=== PATIENT | female | born 1990 | race African-American/Black ===

== ENCOUNTER 2016-11-25 10:31 | Emergency (ER) | payer OTHER ==
[~2016-11-25] VITALS: Ht 170.2 cm; Wt 84.4 kg
[~2016-11-25 10:31] MED LIST: TRAZ100T12 PO
[2016-11-25 10:40] VITALS: BP 151/96
[2016-11-25 11:42] LABS: BILIRUBIN,URINE NEGATIVE (NEG); GLUCOSE,URINE NEGATIVE (NEG); NITRITE,URINE NEGATIVE (NEG); PH,URINE 6.5; PROTEIN,URINE NEGATIVE (NEG-TRACE); UROBILINOGEN,URINE 0.2 mg/dL (0.2 mg/dL)
--- NOTE | 2016-11-25 11:43 | PHYS DOC ---
Past Medical History Past Medical History: Hypertension Additional Past Medical Histor: PE Past Surgical History: No Surgical History Alcohol Use: Occasionally Drug Use: None Adult General Chief Complaint Chief Complaint: VAGINAL PROBLEM HPI HPI Patient is a 26 year old female presents to the emergency department with a history of vaginal discharge for the last 2 weeks. Patient states she had seen her PCP and was given zithromax 1 gm and cream for a yeast infection. Patient states that she has still continued to have vaginal discharge with and odor in which she is not able to describe. Patient states she is also concerned about syphilis and would like to be tested as well. Patient does state she sexually active with one partner. Patient denies any urinary symptoms. Review of Systems Review of Systems Constitutional: Denies fever or chills [] Eyes: Denies change in visual acuity, redness, or eye pain [] HENT: Denies nasal congestion or sore throat [] Respiratory: Denies cough or shortness of breath [] Cardiovascular: No additional information not addressed in HPI [] GI: Denies abdominal pain, nausea, vomiting, bloody stools or diarrhea [] : Denies dysuria or hematuria. C/o vaginal discharge with an odor Musculoskeletal: Denies back pain or joint pain [] Integument: Denies rash or skin lesions [] Neurologic: Denies headache, focal weakness or sensory changes [] Endocrine: Denies polyuria or polydipsia [] Current Medications Current Medications Current Medications Medications (Trade) Dose Ordered Sig/Renard Start Time Stop Time Status Last Admin Dose Admin Azithromycin (Zithromax) 1,000 mg 1X ONCE 11/25/16 12:00 11/25/16 12:01 DC 11/25/16 11:49 1,000 MG Ceftriaxone Sodium (Rocephin Im) 250 mg 1X ONCE 11/25/16 12:00 11/25/16 12:01 DC 11/25/16 11:50 250 MG Metronidazole (Flagyl) 2,000 mg 1X ONCE 11/25/16 12:00 11/25/16 12:01 DC 11/25/16 11:49 2,000 MG Allergies Allergies Allergies Coded Allergies Type Severity Reaction Last Updated Verified No Known Drug Allergies 10/26/13 No Physical Exam Physical Exam Constitutional: Well developed, well nourished, no acute distress, non-toxic appearance. [] HENT: Normocephalic, atraumatic, bilateral external ears normal, oropharynx moist, no oral exudates, nose normal. [] Eyes: PERRLA, EOMI, conjunctiva normal, no discharge. [] Neck: Normal range of motion, no tenderness, supple, no stridor. [] Cardiovascular:Heart rate regular rhythm, no murmur [] Lungs & Thorax: Bilateral breath sounds clear to auscultation [] Skin: Warm, dry, no erythema, no rash. [] Back: No tenderness Extremities: No tenderness, no cyanosis, no clubbing, ROM intact, no edema. [] Neurologic: Alert and oriented X 3, normal motor function, normal sensory function, no focal deficits noted. [] Psychologic: Affect normal, judgement normal, mood normal. [] Vaginal exam: speculum with white discharge noted in the vaginal area. Manual exam patient with no adnexal tenderness no CMT noted. Current Patient Data Vital Signs Vital Signs Date Time Temp Pulse Resp B/P (MAP) Pulse Ox O2 Delivery O2 Flow Rate FiO2 11/25/16 10:40 99.5 87 16 95 Room Air 99.5 Lab Values Laboratory Tests Test 11/25/16 10:15 11/25/16 11:00 POC Urine HCG, Qualitative Hcg negative (Negative) Urine Collection Type Unknown Urine Color Yellow Urine Clarity Clear Urine pH 6.5 Urine Specific [place] <=1.005 Urine Protein Negative mg/dL (NEG-TRACE) Urine Glucose (UA) Negative mg/dL (NEG) Urine Ketones (Stick) Negative mg/dL (NEG) Urine Blood Trace (NEG) Urine Nitrite Negative (NEG) Urine Bilirubin Negative (NEG) Urine Urobilinogen Dipstick 0.2 mg/dL (0.2 mg/dL) Urine Leukocyte Esterase Negative (NEG) Urine RBC Occ /HPF (0-2) Urine WBC 0 /HPF (0-4) Urine Squamous Epithelial Cells Few /LPF Urine Bacteria 0 /HPF (0-FEW) Microbiology 11/25/16 Wet Prep - Final, Complete EKG EKG [] Radiology/Procedures Radiology/Procedures [] Course & Med Decision Making Course & Med Decision Making Pertinent Labs and Imaging studies reviewed. (See chart for details) Wet prep was positive for bacterial vaginosis. Patient's urine was positive for blood. Patient will be placed on Flagyl as well as Macrobid with recommendations to follow-up the primary care physician in the next week. Patient was treated with Rocephin and Flagyl here in the emergency department as she was also provided Zithromax and her primary care physician's office. Patient will be discharged home in stable condition with recommendations to avoid sexual intercourse for the next 2 weeks. Drink plenty of fluids such as her and cranberry juice. Avoid cranberry juice cocktail, carbonate beverages, citrus fruits and alcohol. Signs symptoms to return back to emergency department provided. Patient agrees with discharge instructions treatment regimens and follow-up recommendations. [] Dragon Disclaimer Dragon Disclaimer This electronic medical record was generated, in whole or in part, using a voice recognition dictation system. Departure Departure Impression: Primary Impression: Bacterial vaginosis Additional Impression: Cystitis Disposition: HOME, SELF-CARE Condition: STABLE Referrals: NO PCP (PCP) Patient Instructions: Bacterial Vaginosis, [id number] Additional Instructions: Activity as tolerated. Medications as prescribed Drink plenty of fluids such as water and cranberry juice. Avoid cranberry juice cocktail, carbonated beverages, citrus fruits and alcohol sees her considered irritants to the bladder. Avoid sexual intercourse for the next 2 weeks. You've been treated for sexually transmitted infections, he is also been tested for syphilis. These results should be back in approximately 3-4 days. We will call you with the results if they are positive only. Follow-up to primary care physician in the next 7-10 days. Return back to emergency prior signs symptoms of become worse. Scripts Fluconazole (DIFLUCAN) 150 Mg Tablet 1 TAB PO ONCE, #1 TAB 1 Refill 1 tablet today and may repeat in once antibotics are completed Prov: BERNARD PARIS APRN 11/25/16 Metronidazole (FLAGYL) 500 Mg Tablet 1 TAB PO BID, #14 TAB Prov: BERNARD PARIS APRN 11/25/16 Nitrofurantoin Monohyd/M-Cryst (MACROBID 100 MG CAPSULE) 100 Mg Capsule 1 CAP PO BID, #14 CAP Prov: BERNARD PARIS APRN 11/25/16 Problem Qualifiers BERNARD PARIS APRN Nov 25, 2016 11:43
[2016-11-25 11:54] LABS: BACTERIA,URINE 0 /HPF (0-FEW); RBC,URINE OCC /HPF (0-2); SQUAMOUS EPITHELIAL CELL,UR FEW /LPF; WBC,URINE 0 /HPF (0-4)
[2016-11-25] MEDS ORDERED: metroNIDAZOLE 500 MG TABLET PO ONE (12:00)
[2016-11-25] MEDS ORDERED: cefTRIAXone IM 250 MG VIAL IM ONE (12:00)
[2016-11-25] MEDS ORDERED: AZITHROMYCIN 250 MG TABLET. PO ONE (12:00)
[2016-11-25] MEDS ORDERED: METR500T PO (12:44)
[2016-11-25] MEDS ORDERED: NITR100C62 PO (12:44)
[2016-11-25] MEDS ORDERED: FLUC150T PO (12:44)
[2016-11-26 06:20] LABS: RPR REFLEX Non Reactive (Non Reactive)
== END 2016-11-25 12:50 | disposition home or self-care (01) ==
LOC: ER 10:31
DX: N76.0 Acute vaginitis (principal); B96.89 Other specified bacterial agents as the cause of diseases classified elsewhere; N30.90 Cystitis, unspecified without hematuria; I10 Essential (primary) hypertension
CPT/HCPCS: 36415; 81001; 81025; 86593; 87491; 87591; 96372; 99284; J0696; Q0111; Q0144

== ENCOUNTER 2017-07-04 12:13 | Emergency (ER) | payer OTHER | END 2017-07-04 13:09 | disposition home or self-care (01) | LOC: ER 12:13 | DX: L02.411 Cutaneous abscess of right axilla (principal); Z86.711 Personal history of pulmonary embolism | CPT/HCPCS: 99283 ==

== ENCOUNTER 2017-12-21 11:37 | Emergency (ER) | payer SELFPAY, OTHER ==
[2017-12-21 12:16] LABS: URINE HCG POC HCG NEGATIVE (Negative)
== END 2017-12-21 13:25 | disposition home or self-care (01) ==
LOC: ER 13:25
DX: M62.838 Other muscle spasm (principal); M54.2 Cervicalgia; V49.9XXA Car occupant (driver) (passenger) injured in unspecified traffic accident, initial encounter; Y93.89 Activity, other specified; Y92.488 Other paved roadways as the place of occurrence of the external cause; Y99.8 Other external cause status
CPT/HCPCS: 72125; 81025; 99284

== ENCOUNTER 2018-11-10 14:16 | Emergency (ER) | payer OTHER ==
[~2018-11-10] VITALS: Ht 170.2 cm; Wt 89.8 kg
[~2018-11-10 14:16] MED LIST changes: +AMOX875T PO; +CHLO15MO2 PO; +CYCL5TAB PO; +DICL50TA4 PO; +FLUC150T PO; +HYDR-3164 PO; +METR500T PO; +NITR100C62 PO; +SULF1TAB24 PO; +TRAZ-86 PO; -TRAZ100T12 PO
[2018-11-10] MEDS ORDERED: IV NORMAL SALINE 1000ML BAG 1,000 ML IV SCH (15:03)
--- NOTE | 2018-11-10 15:11 | PHYS DOC ---
Past Medical History Past Medical History: Hypertension, Other Additional Past Medical Histor: PULMONARY EMBOLISM Past Surgical History: No Surgical History Alcohol Use: Occasionally Drug Use: None Adult General Chief Complaint Chief Complaint: FLANK PAIN HPI HPI Patient is a 28-year-old female who presents to the emergency department for evaluation. She states for the past 4-5 days, she has had gradual onset right lower back/flank pain, she has not had any numbness, weakness, or urinary sympto ms. She does admit to some whitish vaginal discharge, which is new for her. She is uncertain if she is , but states her last menstrual period was about 2-3 weeks ago. She is uncertain if she could've been exposed to STDs. She has not had any nausea, vomiting, fevers, or chills. There are no alleviating, or exacerbating factors to her symptoms. Review of Systems Review of Systems Constitutional: Denies fever or chills [] Eyes: Denies change in visual acuity, redness, or eye pain [] HENT: Denies nasal congestion or sore throat [] Respiratory: Denies cough or shortness of breath [] Cardiovascular: The patient denies any shortness of breath, chest pain, palpitations, or orthopnea [] GI: Denies abdominal pain, nausea, vomiting, bloody stools or diarrhea [] : Denies dysuria or hematuria. Admits to vaginal discharge. [] Musculoskeletal: Denies back pain or joint pain, except as noted in the history of present illness [] Integument: Denies rash or skin lesions [] Neurologic: Denies headache, focal weakness or sensory changes [] Endocrine: Denies polyuria or polydipsia [] All other systems were reviewed and found to be within normal limits, except as documented in this note. Current Medications Current Medications Current Medications Medications (Trade) Dose Ordered Sig/Renard Start Time Stop Time Status Last Admin Dose Admin Ketorolac Tromethamine (Toradol 30mg Vial) 30 mg 1X ONCE 11/10/18 15:15 11/10/18 15:16 DC Sodium Chloride 1,000 ml @ 1,000 mls/hr Q1H 11/10/18 15:03 11/10/18 16:02 DC Allergies Allergies Allergies Coded Allergies Type Severity Reaction Last Updated Verified No Known Drug Allergies 10/26/13 No Physical Exam Physical Exam PHYSICAL EXAM: CONSTITUTIONAL: Well developed, well nourished HEAD: normocephalic, atraumatic EENT: PERRL, EOMI. Conjunctivae normal color, sclerae non-icteric; moist mucous membranes. NECK: Supple, non-tender; no meningismus. LUNGS: Lungs CTA, breathing even and unlabored. Normal air movement. HEART: Regular rate and rhythm, no murmur CHEST: No deformity; non-tender ABDOMEN: The abdomen is soft, and non-tender, no masses or bruits. There is mild, diffuse tenderness to palpation to the suprapubic area. There is no rebound or guarding EXTREM: Normal ROM; no deformity, no calf tenderness. Normal pulses palpable in all extremities. There is no pedal edema. SKIN: No rash; no diaphoresis NEURO: Alert; normal speech and cognition; CN's grossly intact; strength grossly intact without focal deficit. BACK: There is mild right-sided CVA TTP. . No left-sided CVA TTP.There is no bony tenderness to palpation of the thoracic or lumbar spine. PELVIC EXAM: Normal external genitalia. There is a small amount of white vaginal discharge present. The cervix appears normal. There is no cervical motion tenderness, or adnexal tenderness to palpation or palpable mass. Exam was perf ormed in the presence the patient's nurse, Sylvia. Current Patient Data Vital Signs Vital Signs Date Time Temp Pulse Resp B/P (MAP) Pulse Ox O2 Delivery O2 Flow Rate FiO2 11/10/18 14:24 97.7 89 16 139/91 (107) 99 Room Air 97.7 Lab Values Laboratory Tests Test 11/10/18 14:40 11/10/18 15:07 Urine Color Yellow Urine Clarity Clear Urine pH 7.5 Urine Specific [place] 1.025 Urine Protein Negative mg/dL (NEG-TRACE) Urine Glucose (UA) Negative mg/dL (NEG) Urine Ketones (Stick) Negative mg/dL (NEG) Urine Blood Negative (NEG) Urine Nitrite Negative (NEG) Urine Bilirubin Negative (NEG) Urine Urobilinogen Dipstick 0.2 mg/dL (0.2 mg/dL) Urine Leukocyte Esterase Negative (NEG) Urine RBC 0 /HPF (0-2) Urine WBC 1-4 /HPF (0-4) Urine Squamous Epithelial Cells Occ /LPF Urine Bacteria Few /HPF (0-FEW) Urine Mucus Mod /LPF Urine Test Negative (NEG) White Blood Count 6.5 x10^3/uL (4.0-11.0) Red Blood Count 4.85 x10^6/uL (3.50-5.40) Hemoglobin 15.3 g/dL (12.0-15.5) Hematocrit 45.2 % (36.0-47.0) Mean Corpuscular Volume 93 fL (79-100) Mean Corpuscular Hemoglobin 32 pg (25-35) Mean Corpuscular Hemoglobin Concent 34 g/dL (31-37) Red Cell Distribution Width 13.9 % (11.5-14.5) Platelet Count 257 x10^3/uL (140-400) Neutrophils (%) (Auto) 65 % (31-73) Lymphocytes (%) (Auto) 23 % (24-48) L Monocytes (%) (Auto) 10 % (0-9) H Eosinophils (%) (Auto) 2 % (0-3) Basophils (%) (Auto) 1 % (0-3) Neutrophils # (Auto) 4.2 x10^3uL (1.8-7.7) Lymphocytes # (Auto) 1.5 x10^3/uL (1.0-4.8) Monocytes # (Auto) 0.6 x10^3/uL (0.0-1.1) Eosinophils # (Auto) 0.1 x10^3/uL (0.0-0.7) Basophils # (Auto) 0.1 x10^3/uL (0.0-0.2) Sodium Level 140 mmol/L (136-145) Potassium Level 4.1 mmol/L (3.5-5.1) Chloride Level 104 mmol/L (98-107) Carbon Dioxide Level 28 mmol/L (21-32) Anion Gap 8 (6-14) Blood Urea Nitrogen 11 mg/dL (7-20) Creatinine 0.9 mg/dL (0.6-1.0) Estimated GFR (Cockcroft-Gault) 89.6 BUN/Creatinine Ratio 12 (6-20) Glucose Level 98 mg/dL (70-99) Calcium Level 9.3 mg/dL (8.5-10.1) Total Bilirubin 0.6 mg/dL (0.2-1.0) Aspartate Amino Transferase (AST) 41 U/L (15-37) H Alanine Aminotransferase (ALT) 41 U/L (14-59) Alkaline Phosphatase 57 U/L (46-116) Total Protein 7.5 g/dL (6.4-8.2) Albumin 3.4 g/dL (3.4-5.0) Albumin/Globulin Ratio 0.8 (1.0-1.7) L Laboratory Tests 11/10/18 15:07 Laboratory Tests 11/10/18 15:07 Microbiology 11/10/18 Wet Prep - Final, Complete Laboratory Tests Test 11/10/18 14:40 11/10/18 15:07 Urine Color Yellow Urine Clarity Clear Urine pH 7.5 Urine Specific [place] 1.025 Urine Protein Negative mg/dL (NEG-TRACE) Urine Glucose (UA) Negative mg/dL (NEG) Urine Ketones (Stick) Negative mg/dL (NEG) Urine Blood Negative (NEG) Urine Nitrite Negative (NEG) Urine Bilirubin Negative (NEG) Urine Urobilinogen Dipstick 0.2 mg/dL (0.2 mg/dL) Urine Leukocyte Esterase Negative (NEG) Urine RBC 0 /HPF (0-2) Urine WBC 1-4 /HPF (0-4) Urine Squamous Epithelial Cells Occ /LPF Urine Bacteria Few /HPF (0-FEW) Urine Mucus Mod /LPF Urine Test Negative (NEG) White Blood Count 6.5 x10^3/uL (4.0-11.0) Red Blood Count 4.85 x10^6/uL (3.50-5.40) Hemoglobin 15.3 g/dL (12.0-15.5) Hematocrit 45.2 % (36.0-47.0) Mean Corpuscular Volume 93 fL (79-100) Mean Corpuscular Hemoglobin 32 pg (25-35) Mean Corpuscular Hemoglobin Concent 34 g/dL (31-37) Red Cell Distribution Width 13.9 % (11.5-14.5) Platelet Count 257 x10^3/uL (140-400) Neutrophils (%) (Auto) 65 % (31-73) Lymphocytes (%) (Auto) 23 % (24-48) L Monocytes (%) (Auto) 10 % (0-9) H Eosinophils (%) (Auto) 2 % (0-3) Basophils (%) (Auto) 1 % (0-3) Neutrophils # (Auto) 4.2 x10^3uL (1.8-7.7) Lymphocytes # (Auto) 1.5 x10^3/uL (1.0-4.8) Monocytes # (Auto) 0.6 x10^3/uL (0.0-1.1) Eosinophils # (Auto) 0.1 x10^3/uL (0.0-0.7) Basophils # (Auto) 0.1 x10^3/uL (0.0-0.2) Sodium Level 140 mmol/L (136-145) Potassium Level 4.1 mmol/L (3.5-5.1) Chloride Level 104 mmol/L (98-107) Carbon Dioxide Level 28 mmol/L (21-32) Anion Gap 8 (6-14) Blood Urea Nitrogen 11 mg/dL (7-20) Creatinine 0.9 mg/dL (0.6-1.0) Estimated GFR (Cockcroft-Gault) 89.6 BUN/Creatinine Ratio 12 (6-20) Glucose Level 98 mg/dL (70-99) Calcium Level 9.3 mg/dL (8.5-10.1) Total Bilirubin Pending Aspartate Amino Transferase (AST) Pending Alanine Aminotransferase (ALT) Pending Alkaline Phosphatase Pending Total Protein Pending Albumin Pending Albumin/Globulin Ratio Pending Laboratory Tests 11/10/18 15:07 Laboratory Tests 11/10/18 15:07 Microbiology 11/10/18 Wet Prep - Final, Complete EKG EKG [] Radiology/Procedures Radiology/Procedures [PROCEDURE: CT ABDOMEN PELVIS WO CONTRAST CT of the abdomen and pelvis without contrast, 11/10/2018: HISTORY: Right flank pain Noncontrast scans were obtained utilizing the renal stone protocol. Comparison is made to a study from 04/03/2014. No intrarenal calculi are identified. The renal collecting systems and ureters are not dilated. The distal ureters cannot be clearly traced through the pelvis in this patient, however, no ureteral calculus is seen. There are numerous pelvic and left periureteral calcifications compatible with phleboliths. There is mild diffuse bladder wall thickening. This may be accentuated by its nondistended state. There is minimal linear atelectasis or scarring posteriorly in the right lung base. The unopacified liver is unremarkable. The gallbladder is collapsed. No pancreatic abnormality is seen. The spleen is of normal size. The bowel loops are not dilated. A portion of the appendix is visualized and it shows no abnormality. No free air or significant free fluid is evident in the abdomen or pelvis. There is mild diastases of the rectus abdominis musculature with anterior bulging of the intervening fascia in the umbilical region. IMPRESSION: 1. No urinary tract calculi are identified. 2. Mild diffuse bladder wall thickening. Cystitis is a possibility. Clinical correlation suggested. ] Course & Med Decision Making Course & Med Decision Making Pertinent Labs and Imaging studies reviewed. (See chart for details) [] WET PREP Final YEAST NONE SEEN TRICHOMONAS NONE SEEN CLUE CELLS CLUE CELLS PRESENT ALTERED PATRICIA ALTERED PATRICIA PRESENT SUGGESTIVE OF BACTERIAL VAGINOSIS WBCS OCCASIONAL RBCS NO RBCS SEEN SQUAMOUS EPS MODERATE Patient remains stable. I discussed test results, the need for close follow-up, and return precautions. Dragon Disclaimer Dragon Disclaimer This electronic medical record was generated, in whole or in part, using a voice recognition dictation system. Departure Departure Impression: Primary Impression: Bacterial vaginosis Disposition: 01 HOME, SELF-CARE Condition: STABLE Referrals: UNKNOWN PCP NAME (PCP) Patient Instructions: Back Pain, Adult, Bacterial Vaginosis Additional Instructions: Ibuprofen 400-600 mg every 6 hours may help improve your symptoms. Applying a heating pad to the affected area may help improve your symptoms. Scripts Metronidazole (FLAGYL) 500 Mg Tablet 1 TAB PO BID, #14 TAB Prov: CHRISTOPHER COOL MD 11/10/18 CHRISTOPHER COOL MD November 10, 2018 15:11
[2018-11-10] MEDS ORDERED: KETOROLAC 30 MG/ML VIAL. IV ONE (15:15)
[2018-11-10 15:20] LABS: BILIRUBIN,URINE NEGATIVE (NEG); CLARITY,URINE CLEAR; COLOR,URINE YELLOW; NITRITE,URINE NEGATIVE (NEG); PH,URINE 7.5; PROTEIN,URINE NEGATIVE (NEG-TRACE); UROBILINOGEN,URINE 0.2 mg/dL (0.2 mg/dL)
[2018-11-10 15:28] LABS: U PREG PATIENT NEGATIVE (NEG)
[2018-11-10 15:54] LABS: BASO # 0.1 x10^3/uL (0.0-0.2); BASO % 1 % (0-3); EOS # 0.1 x10^3/uL (0.0-0.7); EOS % 2 % (0-3); HEMATOCRIT 45.2 % (36.0-47.0); HEMOGLOBIN 15.3 g/dL (12.0-15.5); LYMPH # 1.5 x10^3/uL (1.0-4.8); LYMPH % 23 % (24-48); MEAN CORPUSCULAR HEMOGLOBIN 32 pg (25-35); MEAN CORPUSCULAR HGB CONC 34 g/dL (31-37); MEAN CORPUSCULAR VOLUME 93 fL (79-100); MONO # 0.6 x10^3/uL (0.0-1.1); MONO % 10 % (0-9); NEUT # 4.2 x10^3uL (1.8-7.7); NEUT % 65 % (31-73); PLATELET COUNT 257 x10^3/uL (140-400); RED BLOOD COUNT 4.85 x10^6/uL (3.50-5.40); RED CELL DISTRIBUTION WIDTH 13.9 % (11.5-14.5); WHITE BLOOD COUNT 6.5 x10^3/uL (4.0-11.0)
--- NOTE | 2018-11-10 15:59 | RAD ---
CT of the abdomen and pelvis without contrast, 11/10/2018: HISTORY: Right flank pain Noncontrast scans were obtained utilizing the renal stone protocol. Comparison is made to a study from 04/03/2014. No intrarenal calculi are identified. The renal collecting systems and ureters are not dilated. The distal ureters cannot be clearly traced through the pelvis in this patient, however, no ureteral calculus is seen. There are numerous pelvic and left periureteral calcifications compatible with phleboliths. There is mild diffuse bladder wall thickening. This may be accentuated by its nondistended state. There is minimal linear atelectasis or scarring posteriorly in the right lung base. The unopacified liver is unremarkable. The gallbladder is collapsed. No pancreatic abnormality is seen. The spleen is of normal size. The bowel loops are not dilated. A portion of the appendix is visualized and it shows no abnormality. No free air or significant free fluid is evident in the abdomen or pelvis. There is mild diastases of the rectus abdominis musculature with anterior bulging of the intervening fascia in the umbilical region. IMPRESSION: 1. No urinary tract calculi are identified. 2. Mild diffuse bladder wall thickening. Cystitis is a possibility. Clinical correlation suggested. PQRS Compliance Statement: One or more of the following individualized dose reduction techniques were utilized for this examination: 1. Automated exposure control 2. Adjustment of the mA and/or kV according to patient size 3. Use of iterative reconstruction technique Electronically signed by: Nitish Bush MD (11/10/2018 3:56 PM) [facility]
[2018-11-10 16:00] VITALS: BP 131/72
[2018-11-10 16:02] LABS: BACTERIA,URINE FEW /HPF (0-FEW); RBC,URINE 0 /HPF (0-2); SQUAMOUS EPITHELIAL CELL,UR OCC /LPF
[2018-11-10 16:14] LABS: CALCIUM 9.3 mg/dL (8.5-10.1); CREATININE 0.9 mg/dL (0.6-1.0); GFR 89.6; POTASSIUM 4.1 mmol/L (3.5-5.1)
[2018-11-10] MEDS ORDERED: METR500T PO (16:23)
[2018-11-10 16:26] LABS: ALBUMIN 3.4 g/dL (3.4-5.0); ALBUMIN/GLOBULIN RATIO 0.8 (1.0-1.7); TOTAL BILIRUBIN 0.6 mg/dL (0.2-1.0); TOTAL PROTEIN 7.5 g/dL (6.4-8.2)
[2018-11-10] MEDS ORDERED: FLUC150T PO (17:01)
[2018-11-11 13:15] LABS: GC PROBE Negative (Negative)
== END 2018-11-10 17:08 | disposition home or self-care (01) ==
LOC: ER 14:16
DX: N76.0 Acute vaginitis (principal); B96.89 Other specified bacterial agents as the cause of diseases classified elsewhere; I10 Essential (primary) hypertension; Z86.711 Personal history of pulmonary embolism
CPT/HCPCS: 36415; 74176; 80053; 81001; 81025; 85025; 87491; 87591; 99285; Q0111

== ENCOUNTER 2019-01-09 20:53 | Emergency (ER) | payer OTHER ==
[~2019-01-09] VITALS: Ht 170.2 cm; Wt 72.6 kg
[2019-01-09 21:00] VITALS: BP 135/90
[2019-01-09] MEDS ORDERED: IBUP-1007 PO (22:13)
[2019-01-09] MEDS ORDERED: HYDR-3164 PO (22:13)
[2019-01-09] MEDS ORDERED: ORPH100T PO (22:13)
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
--- NOTE | 2019-01-10 08:15 | RAD ---
CHEST PA LATERAL History: Chest pain Comparison: June 28, 2013 Findings: 2 views of the chest are submitted. There is no infiltrate, pneumothorax, or effusion. Pericardial cardiac silhouette is within normal limits in size. Impression: 1. There is no radiographic evidence of acute cardiopulmonary disease. Electronically signed by: Kee Craig MD (01/10/2019 8:12 AM) [id number]
== END 2019-01-09 22:21 | disposition home or self-care (01) ==
LOC: ER 20:53
DX: S29.012A Strain of muscle and tendon of back wall of thorax, initial encounter (principal); I10 Essential (primary) hypertension; Z86.711 Personal history of pulmonary embolism; Z91.018 Allergy to other foods; V43.62XA Car passenger injured in collision with other type car in traffic accident, initial encounter; Y93.89 Activity, other specified; Y92.410 Unspecified street and highway as the place of occurrence of the external cause; Y99.8 Other external cause status
CPT/HCPCS: 71046; 99284

== ENCOUNTER 2019-02-01 08:27 | Emergency (ER) | payer OTHER ==
[~2019-02-01] VITALS: Ht 165.1 cm; Wt 86.7 kg
[~2019-02-01 08:27] MED LIST changes: +IBUP-1007 PO; +ORPH100T PO
[2019-02-01 08:35] VITALS: BP 149/93
--- NOTE | 2019-02-01 08:48 | PHYS DOC ---
Past Medical History Past Medical History: Hypertension Additional Past Medical Histor: PULMONARY EMBOLISM Past Surgical History: No Surgical History Alcohol Use: None Drug Use: None Adult General Chief Complaint Chief Complaint: SORE THROAT HPI HPI Patient is a 28 year old AA female who presents to the ER with complaints of a sore throat and dry cough since yesterday. Pt rates her pain a 10/10 on the pain scale and denies any alleviating factors. She states that her throat feels like it did when she had strep throat in the past. ROS PT reports bilateral ear pain in addition to sore throat. She reports tactile fever and dry cough. Pt denies any nausea, vomiting, diarrhea, abdominal pain, rash, headache, fatigue, wheezing, or shortness of breath. All other ROS is neg unless otherwise noted in HPI. Review of Systems Review of Systems See Above Current Medications Current Medications Current Medications Medications (Trade) Dose Ordered Sig/Renard Start Time Stop Time Status Last Admin Dose Admin Penicillin G Benzathine (Bicillin L-A) 1,200,000 unit 1X ONCE 02/01/19 08:45 02/01/19 08:46 DC 02/01/19 08:53 1,200,000 UNIT Allergies Allergies Allergies Coded Allergies Type Severity Reaction Last Updated Verified pineapple Allergy Unknown 01/09/19 Yes Physical Exam Physical Exam See Above Constitutional: Well developed, well nourished, no acute distress, non-toxic appearance. [] HENT: Normocephalic, atraumatic, bilateral external ears normal, oropharynx moist, 2+ bilateral tonsils with erythema and exudate bilaterally, nose normal. [] Eyes: PERRLA, EOMI, conjunctiva normal, no discharge. [] Neck: Normal range of motion, bilateral anterior chain lymphadenopathy and TTP, no stridor. [] Cardiovascular:Heart rate regular rhythm, no murmur [] Lungs & Thorax: Bilateral breath sounds clear to auscultation [] Skin: Warm, dry, no erythema, no rash. [] Extremities: No cyanosis, ROM intact, Neurologic: Alert and oriented X 3, normal motor function, normal sensory function, no focal deficits noted. [] Psychologic: Affect normal, judgement normal, mood normal. [] Current Patient Data Vital Signs Vital Signs Date Time Temp Pulse Resp B/P (MAP) Pulse Ox O2 Delivery O2 Flow Rate FiO2 02/01/19 08:35 99.5 105 16 149/93 (111) 98 Room Air 99.5 EKG EKG [] Radiology/Procedures Radiology/Procedures [] Course & Med Decision Making Course & Med Decision Making Pertinent Labs and Imaging studies reviewed. (See chart for details) dx: strep pharyngitis Will treat for strep pharyngitis based off of physical exam findings and [facility] criteria. Pt requests an IM injection of antibiotic instead of prescription. Pt encouraged to alternate tylenol and ibuprofen as needed for pain/fever. Warm salt water gargles/swishes recommended. Discard toothbrush tomorrow. Follow up wtih PCP if sx persist, return to ER if sx worsen. Patient verbalized an understanding of home care, medications, follow-up, and return to ED instructions and was in agreement with the plan of care. 0903- Pt refuses IM injection at this time and requests prescription for amoxicillin. [] Dragon Disclaimer Dragon Disclaimer This electronic medical record was generated, in whole or in part, using a voice recognition dictation system. Departure Departure Impression: Primary Impression: Acute streptococcal pharyngitis Disposition: HOME, SELF-CARE Condition: STABLE Referrals: NO PCP (PCP) Patient Instructions: Strep Throat, [id number] Additional Instructions: Fill the prescription and use as directed. Recommend warm salt water gargles as needed for relief of discomfort. Alternate Tylenol and ibuprofen as needed for fever/pain. Discard your toothbrush tomorrow and begin using a new toothbrush. Follow-up with primary care doctor if symptoms persist. Return to the ER if symptoms worsen. Scripts Amoxicillin (AMOXICILLIN) 500 Mg Capsule 1 CAP PO BID for 10 Days, #20 CAP 0 Refills Prov: ALLY TANNER PIPE BOWLS PAINT TRIMMER 02/01/19 ALLY TANNER PIPE BOWLS PAINT TRIMMER Feb 01, 2019 08:48
[2019-02-01] MEDS: PENICILLIN G BENZATHINE LA 1,200,000 UNIT/2 ML DISP.SYRIN. IM ONE ×2 (08:53→09:00)
[2019-02-01] MEDS ORDERED: AMOX500C PO (09:04)
== END 2019-02-01 09:15 | disposition home or self-care (01) ==
LOC: ER 08:27
DX: J02.0 Streptococcal pharyngitis (principal); B95.5 Unspecified streptococcus as the cause of diseases classified elsewhere; I10 Essential (primary) hypertension; Z91.018 Allergy to other foods
CPT/HCPCS: 99283; J0561

== ENCOUNTER 2019-03-19 11:14 | Emergency (ER) | payer OTHER ==
[~2019-03-19] VITALS: Ht 175.3 cm; Wt 86.6 kg
[~2019-03-19 11:14] MED LIST changes: +AMOX500C PO
[2019-03-19 11:28] VITALS: BP 157/92
--- NOTE | 2019-03-19 12:01 | PHYS DOC ---
Past Medical History Past Medical History: DVT, Hypertension, Other Additional Past Medical Histor: PULMONARY EMBOLISM Past Surgical History: No Surgical History Alcohol Use: Occasionally Drug Use: None Adult General Chief Complaint Chief Complaint: TOE PROBLEM HPI HPI Patient is a 28 year old AA female, accompanied by her children, who presents to the emergency Department today with complaints of right second toe pain after accidentally kicking a door earlier this morning. Patient currently rates her pain a 10 out of 10 on the pain scale, she denies any alleviating factors, the pain is worse with palpation and weightbearing. Review of Systems Review of Systems Constitutional: Denies fever or chills [] Eyes: Denies redness, or eye pain [] HENT: Denies nasal congestion or sore throat [] Respiratory: Denies cough or shortness of breath [] Cardiovascular: No additional information not addressed in HPI [] Musculoskeletal: See history of present illness Integument: Denies rash or skin lesions [] Neurologic: Denies headache Complete systems were reviewed and found to be within normal limits, except as documented in this note. Allergies Allergies Allergies Coded Allergies Type Severity Reaction Last Updated Verified pineapple Allergy Unknown 01/09/19 Yes Physical Exam Physical Exam Constitutional: Well developed, well nourished, no acute distress, non-toxic appearance, obese. [] HENT: Normocephalic, atraumatic, bilateral external ears normal, nose normal. [] Eyes: PERRLA, EOMI, conjunctiva normal, no discharge. [] Neck: Normal range of motion, no stridor. [] Cardiovascular:Heart rate regular rhythm Lungs & Thorax: Respirations even and unlabored, no retractions, no respiratory distress Skin: Warm, dry, no erythema, no rash. [] Back: No tenderness Extremities: No cyanosis, no clubbing, ROM intact, no edema; R 2nd toe tender to palpation with visible deformity, R pedal pulse 2+ Neurologic: Alert and oriented X 3, no focal deficits noted. [] Psychologic: Affect normal, judgement normal, mood normal. [] Current Patient Data Vital Signs Vital Signs Date Time Temp Pulse Resp B/P (MAP) Pulse Ox O2 Delivery O2 Flow Rate FiO2 03/19/19 11:28 98.2 82 16 157/92 (113) 98 Room Air 98.2 EKG EKG [] Radiology/Procedures Radiology/Procedures PROCEDURE: TOES RIGHT Indication: Second toe pain after kicking door this morning TECHNIQUE: AP view of the right foot and 2 views of the right toe COMPARISON: None Findings/ impression: Oblique minimally displaced fracture is seen of the diaphysis of the proximal phalanx of the second toe. No extension to the articular surface.[] Course & Med Decision Making Course & Med Decision Making Pertinent Labs and Imaging studies reviewed. (See chart for details) [] Dragon Disclaimer Dragon Disclaimer This electronic medical record was generated, in whole or in part, using a voice recognition dictation system. Departure Departure Impression: Primary Impression: Closed fracture of phalanx of right second toe with malunion Disposition: HOME, SELF-CARE Condition: STABLE Referrals: NO PCP (PCP) Patient Instructions: Eric Taping of Toes, Toe Fracture, [id number] Additional Instructions: Fill the prescription and use as directed. Eric tape the toes as demonstrated i n the ER and wear the post-op shoe provided. Follow up with Dr. Burgess or your primary care doctor next week. Return to the ER if symptoms worsen. Scripts Hydrocodone Bit/Acetaminophen (HYDROCODONE-APAP 5-325 ) 1 Tab Tablet 1 TAB PO PRN Q6HRS PRN for PAIN for 3 Days, #12 TAB 0 Refills Prov: ALLY TANNER APRN 03/19/19 Splinting Splinting : Location: R foot Pre-Made Type: velcro (post-op shoe and 2nd and 3rd toes eric taped) Pre-Proc Neuro Vasc Exam: normal Post-Proc Neuro Vasc Exam: normal, unchanged from pre-exam ALLY TANNER APRN Mar 19, 2019 12:01
--- NOTE | 2019-03-19 12:02 | RAD ---
Indication: Second toe pain after kicking door this morning TECHNIQUE: AP view of the right foot and 2 views of the right toe COMPARISON: None Findings/ impression: Oblique minimally displaced fracture is seen of the diaphysis of the proximal phalanx of the second toe. No extension to the articular surface. Electronically signed by: Brandon Perdomo DO (03/19/2019 11:59 AM) [id number]
[2019-03-19] MEDS ORDERED: HYDR-2761 PO (12:06)
== END 2019-03-19 12:30 | disposition home or self-care (01) ==
LOC: ER 11:14
DX: S92.511A Displaced fracture of proximal phalanx of right lesser toe(s), initial encounter for closed fracture (principal); I10 Essential (primary) hypertension; Z86.718 Personal history of other venous thrombosis and embolism; Z86.711 Personal history of pulmonary embolism; W22.8XXA Striking against or struck by other objects, initial encounter; Y93.89 Activity, other specified; Y92.89 Other specified places as the place of occurrence of the external cause; Y99.8 Other external cause status
CPT/HCPCS: 73660; 99284

== ENCOUNTER 2019-04-15 10:40 | Emergency (ER) | payer OTHER ==
[~2019-04-15] VITALS: Ht 170.2 cm; Wt 86.2 kg
[~2019-04-15 10:40] MED LIST changes: +HYDR-2761 PO
[2019-04-15] MEDS ORDERED: KETOROLAC 15 MG/ML VIAL. IV STA (12:23)
--- NOTE | 2019-04-15 12:28 | PHYS DOC ---
Past Medical History Past Medical History: DVT, Hypertension, Other Additional Past Medical Histor: PULMONARY EMBOLISM Past Surgical History: No Surgical History Alcohol Use: Occasionally Drug Use: None Adult General Chief Complaint Chief Complaint: FLANK PAIN HPI HPI Patient is a 28 year old female presents with left-sided flank pain has been ongoing for 3 days, and a cough. She rates her pain as 10 out of 10 in severity and states is intermittent in nature. She denies nausea, vomiting, any other complaints. She states her last menstrual period on March 24. Review of Systems Review of Systems Constitutional: Denies fever or chills [] Eyes: Denies change in visual acuity, redness, or eye pain [] HENT: Denies nasal congestion or sore throat [] Respiratory: Reports cough Cardiovascular: No additional information not addressed in HPI [] GI: Reports abdominal pain, denies nausea, vomiting, bloody stools or diarrhea [] : Denies dysuria or hematuria [] Musculoskeletal: Denies back pain or joint pain [] Integument: Denies rash or skin lesions [] Neurologic: Denies headache, focal weakness or sensory changes [] Endocrine: Denies polyuria or polydipsia [] Complete systems were reviewed and found to be within normal limits, except as documented in this note. Current Medications Current Medications Current Medications Medications (Trade) Dose Ordered Sig/[facility] Start Time Stop Time Status Last Admin Dose Admin Ketorolac Tromethamine (Toradol 15mg Vial) 10 mg 1X STAT 04/15/19 12:23 04/15/19 12:26 DC 04/15/19 12:23 10 MG Morphine Sulfate (Morphine Sulfate) 4 mg 1X ONCE 04/15/19 12:30 04/15/19 12:31 DC 04/15/19 12:30 4 MG Allergies Allergies Allergies Coded Allergies Type Severity Reaction Last Updated Verified pineapple Allergy Unknown 01/09/19 Yes Physical Exam Physical Exam Constitutional: Well developed, well nourished, no acute distress, non-toxic appearance. [] HENT: Normocephalic, atraumatic, bilateral external ears normal, oropharynx moist, no oral exudates, nose normal. [] Eyes: PERRLA, EOMI, conjunctiva normal, no discharge. [] Neck: Normal range of motion, no tenderness, supple, no stridor. [] Cardiovascular:Heart rate regular rhythm, no murmur [] Lungs & Thorax: Bilateral breath sounds clear to auscultation but diminished in the bases. Abdomen: Bowel sounds normal, soft, L flank pain, no masses, no pulsatile masses. [] Skin: Warm, dry, no erythema, no rash. [] Back: No tenderness, no CVA tenderness. [] Extremities: No tenderness, no cyanosis, no clubbing, ROM intact, no edema. [] Neurologic: Alert and oriented X 3, normal motor function, normal sensory function, no focal deficits noted. [] Psychologic: Affect normal, judgement normal, mood normal. [] Current Patient Data Vital Signs Vital Signs Date Time Temp Pulse Resp B/P (MAP) Pulse Ox O2 Delivery O2 Flow Rate FiO2 04/15/19 14:00 84 16 129/69 (89) 96 Room Air 04/15/19 11:40 98.3 98.3 Lab Values Laboratory Tests Test 04/15/19 10:55 04/15/19 12:12 04/15/19 12:40 Urine Collection Type Unknown Urine Color Yellow Urine Clarity Clear Urine pH 6.0 Urine Specific [place] 1.015 Urine Protein Negative mg/dL (NEG-TRACE) Urine Glucose (UA) Negative mg/dL (NEG) Urine Ketones (Stick) Negative mg/dL (NEG) Urine Blood Small (NEG) Urine Nitrite Negative (NEG) Urine Bilirubin Negative (NEG) Urine Urobilinogen Dipstick 0.2 mg/dL (0.2 mg/dL) Urine Leukocyte Esterase Negative (NEG) Urine RBC 3-5 /HPF (0-2) Urine WBC Occ /HPF (0-4) Urine Squamous Epithelial Cells Mod /LPF Urine Bacteria Few /HPF (0-FEW) Urine Mucus Mod /LPF POC Urine HCG, Qualitative Hcg negative (Negative) White Blood Count 6.9 x10^3/uL (4.0-11.0) Red Blood Count 4.62 x10^6/uL (3.50-5.40) Hemoglobin 14.8 g/dL (12.0-15.5) Hematocrit 43.5 % (36.0-47.0) Mean Corpuscular Volume 94 fL (79-100) Mean Corpuscular Hemoglobin 32 pg (25-35) Mean Corpuscular Hemoglobin Concent 34 g/dL (31-37) Red Cell Distribution Width 13.3 % (11.5-14.5) Platelet Count 285 x10^3/uL (140-400) Neutrophils (%) (Auto) 56 % (31-73) Lymphocytes (%) (Auto) 34 % (24-48) Monocytes (%) (Auto) 7 % (0-9) Eosinophils (%) (Auto) 2 % (0-3) Basophils (%) (Auto) 1 % (0-3) Neutrophils # (Auto) 3.9 x10^3/uL (1.8-7.7) Lymphocytes # (Auto) 2.4 x10^3/uL (1.0-4.8) Monocytes # (Auto) 0.5 x10^3/uL (0.0-1.1) Eosinophils # (Auto) 0.1 x10^3/uL (0.0-0.7) Basophils # (Auto) 0.1 x10^3/uL (0.0-0.2) Sodium Level 142 mmol/L (136-145) Potassium Level 3.8 mmol/L (3.5-5.1) Chloride Level 106 mmol/L (98-107) Carbon Dioxide Level 25 mmol/L (21-32) Anion Gap 11 (6-14) Blood Urea Nitrogen 11 mg/dL (7-20) Creatinine 0.6 mg/dL (0.6-1.0) Estimated GFR (Cockcroft-Gault) 143.0 BUN/Creatinine Ratio 18 (6-20) Glucose Level 92 mg/dL (70-99) Calcium Level 8.8 mg/dL (8.5-10.1) Total Bilirubin 0.1 mg/dL (0.2-1.0) L Aspartate Amino Transferase (AST) 24 U/L (15-37) Alanine Aminotransferase (ALT) 24 U/L (14-59) Alkaline Phosphatase 67 U/L (46-116) Total Protein 7.6 g/dL (6.4-8.2) Albumin 3.4 g/dL (3.4-5.0) Albumin/Globulin Ratio 0.8 (1.0-1.7) L Lipase 137 U/L (73-393) Laboratory Tests 04/15/19 12:40 Laboratory Tests 04/15/19 12:40 EKG EKG [] Radiology/Procedures Radiology/Procedures [][facility] [address] [place] [address] IMAGING REPORT Signed PATIENT: AFUA PRICE: [id number] : 1990 LOCATION: ER AGE: 28 SEX: F EXAM STATUS: REG ER ORD. PHYSICIAN: RUSS HAMMONDS APRN REASON: l flank pain PROCEDURE: CT ABDOMEN PELVIS WO CONTRAST CT Abdomen and Pelvis without contrast History: Left flank pain Technique: Noncontrast CT imaging was performed of the abdomen and pelvis. Multiplanar images are reviewed. Exposure: One or more of the following individualized dose reduction techniques were utilized for this examination: 1. Automated exposure control 2. Adjustment of the mA and/or kV according to patient size 3. Use of iterative reconstruction technique. Comparison: November 10, 2018 Findings: There are several phleboliths in the pelvis bilaterally, no new convincing calculus in the pelvis, distal ureters difficult to confidently visualize in their entirety. There is no hydronephrosis or renal calculus. There is mild atelectasis of the visualized lung bases bilaterally.Accurate evaluation of abdominal visceral organs is limited without intravenous contrast. There is no obvious abnormality of the spleen, liver, or pancreas. Gallbladder is present without obvious intraluminal abnormality by CT. There is no adrenal nodularity. Accurate evaluation of bowel is limited without oral contrast. There is no significant free air, free fluid, bowel dilatation. Normal appendix is visualized. There are some small mesenteric and retroperitoneal nodes as seen previously. Impression: 1. There is no hydronephrosis or renal calculus. There are phleboliths in the pelvis, no new convincing calculus in the pelvis. Electronically signed by: Meliza Craig MD (04/15/2019 1:32 PM) [id number] DICTATED and SIGNED BY: MELIZA CRAIG MD DATE: 04/15/19 1332 [facility] [address] [place] [address] IMAGING REPORT Signed PATIENT: AFUA PRICE: [id number] : 1990 LOCATION: ER AGE: 28 SEX: F EXAM STATUS: REG ER ORD. PHYSICIAN: RUSS HAMMONDS APRN REASON: cough PROCEDURE: PORTABLE CHEST 1V PORTABLE CHEST 1V History: Cough Comparison: January 09, 2019 Findings: Single view of the chest is submitted. There is no new infiltrate, pleural fluid, pneumothorax. Heart size is stable. Impression: 1. There is no radiographic evidence of acute cardiopulmonary disease. Electronically signed by: Meliza Craig MD (04/15/2019 12:52 PM) [email or web address] DICTATED and SIGNED BY: MELIZA CRAIG MD DATE: 04/15/19 1252 Course & Med Decision Making Course & Med Decision Making Pertinent Labs and Imaging studies reviewed. (See chart for details) Will get CT, Chest x-ray, and labs. Will also give supportive care. Labs and Chest x-ray are unremarkable. CT shows bilateral atelectasis. Will treat for possible pneumonia based off symptoms and CT. Dragon Disclaimer Dragon Disclaimer This electronic medical record was generated, in whole or in part, using a voice recognition dictation system. Departure Departure Impression: Primary Impression: Pneumonia Disposition: HOME, SELF-CARE Condition: STABLE Referrals: NO PCP (PCP) Patient Instructions: Pneumonia, Adult Additional Instructions: Thank you for visiting [facility]. We appreciate you trusting us with your care. If any additional problems come up don't hesitate to return to visit us. Please follow up with your primary care provider so they can plan additional care if needed and know about the problem that you had. If symptoms worsen come back to the Emergency Department. Any concerning symptoms that start such as chest pain, shortness of air, weakness or numbness on one side of the body, running high fevers or any other concerning symptoms return to the ER. You have been prescribed an antibiotic today to help fight your infection. Please take all of the antibiotic as directed. If after 48 hours the infection is not improving, please return for more care. If the infection worsens, return to ER for additional care. Scripts Doxycycline Hyclate (DOXYCYCLINE HYCLATE) 100 Mg Capsule 1 CAP PO BID for 7 Days, #14 CAP Prov: RUSS HAMMONDS APRN 04/15/19 PERC Rule for PE PERC Rule for PE PERC Rule for PE Response (Comments) Value Age > 50: No 0 HR > 100: No 0 Sa02 on room air <95%: No 0 Unilateral leg swelling: No 0 Hemoptysis: No 0 Recent surgery or trauma: No 0 Prior PE or DVT: No 0 Hormone use: No 0 Total 0 Problem Qualifiers Primary Impression: Pneumonia Pneumonia type: due to unspecified organism Laterality: bilateral Lung location: lower lobe of lung Qualified Codes: J18.1 - Lobar pneumonia, unspecified organism RUSS HAMMONDS APRN Apr 15, 2019 12:28
[2019-04-15] MEDS ORDERED: MORPHINE SULFATE 4 MG/ML VIAL. IV ONE (12:30)
[2019-04-15 12:45] LABS: BILIRUBIN,URINE NEGATIVE (NEG); CLARITY,URINE CLEAR; COLOR,URINE YELLOW; NITRITE,URINE NEGATIVE (NEG); PROTEIN,URINE NEGATIVE (NEG-TRACE); UROBILINOGEN,URINE 0.2 mg/dL (0.2 mg/dL)
[2019-04-15 12:52] LABS: BACTERIA,URINE FEW /HPF (0-FEW); SQUAMOUS EPITHELIAL CELL,UR MOD /LPF; WBC,URINE OCC /HPF (0-4)
[2019-04-15 12:56] LABS: BASO # 0.1 x10^3/uL (0.0-0.2); BASO % 1 % (0-3); EOS # 0.1 x10^3/uL (0.0-0.7); EOS % 2 % (0-3); HEMATOCRIT 43.5 % (36.0-47.0); HEMOGLOBIN 14.8 g/dL (12.0-15.5); LYMPH # 2.4 x10^3/uL (1.0-4.8); LYMPH % 34 % (24-48); MEAN CORPUSCULAR HEMOGLOBIN 32 pg (25-35); MEAN CORPUSCULAR HGB CONC 34 g/dL (31-37); MEAN CORPUSCULAR VOLUME 94 fL (79-100); MONO # 0.5 x10^3/uL (0.0-1.1); MONO % 7 % (0-9); NEUT # 3.9 x10^3/uL (1.8-7.7); NEUT % 56 % (31-73); PLATELET COUNT 285 x10^3/uL (140-400); RED BLOOD COUNT 4.62 x10^6/uL (3.50-5.40); RED CELL DISTRIBUTION WIDTH 13.3 % (11.5-14.5); WHITE BLOOD COUNT 6.9 x10^3/uL (4.0-11.0)
--- NOTE | 2019-04-15 12:56 | RAD ---
PORTABLE CHEST 1V History: Cough Comparison: January 09, 2019 Findings: Single view of the chest is submitted. There is no new infiltrate, pleural fluid, pneumothorax. Heart size is stable. Impression: 1. There is no radiographic evidence of acute cardiopulmonary disease. Electronically signed by: Kee Craig MD (04/15/2019 12:52 PM) [email or web address]
[2019-04-15 13:01] LABS: CALCIUM 8.8 mg/dL (8.5-10.1); CREATININE 0.6 mg/dL (0.6-1.0); POTASSIUM 3.8 mmol/L (3.5-5.1)
[2019-04-15 13:08] LABS: ALBUMIN 3.4 g/dL (3.4-5.0); ALBUMIN/GLOBULIN RATIO 0.8 (1.0-1.7); TOTAL BILIRUBIN 0.1 mg/dL (0.2-1.0); TOTAL PROTEIN 7.6 g/dL (6.4-8.2)
--- NOTE | 2019-04-15 13:35 | RAD ---
CT Abdomen and Pelvis without contrast History: Left flank pain Technique: Noncontrast CT imaging was performed of the abdomen and pelvis. Multiplanar images are reviewed. Exposure: One or more of the following individualized dose reduction techniques were utilized for this examination: 1. Automated exposure control 2. Adjustment of the mA and/or kV according to patient size 3. Use of iterative reconstruction technique. Comparison: November 10, 2018 Findings: There are several phleboliths in the pelvis bilaterally, no new convincing calculus in the pelvis, distal ureters difficult to confidently visualize in their entirety. There is no hydronephrosis or renal calculus. There is mild atelectasis of the visualized lung bases bilaterally.Accurate evaluation of abdominal visceral organs is limited without intravenous contrast. There is no obvious abnormality of the spleen, liver, or pancreas. Gallbladder is present without obvious intraluminal abnormality by CT. There is no adrenal nodularity. Accurate evaluation of bowel is limited without oral contrast. There is no significant free air, free fluid, bowel dilatation. Normal appendix is visualized. There are some small mesenteric and retroperitoneal nodes as seen previously. Impression: 1. There is no hydronephrosis or renal calculus. There are phleboliths in the pelvis, no new convincing calculus in the pelvis. Electronically signed by: Kee Craig MD (04/15/2019 1:32 PM) [email or web address]
[2019-04-15 14:00] VITALS: BP 129/69
[2019-04-15] MEDS ORDERED: DOXY100C2 PO (14:09)
== END 2019-04-15 14:16 | disposition home or self-care (01) ==
LOC: ER 10:40
DX: J18.1 Lobar pneumonia, unspecified organism (principal); Z86.718 Personal history of other venous thrombosis and embolism; I10 Essential (primary) hypertension; Z86.711 Personal history of pulmonary embolism; Z91.013 Allergy to seafood
CPT/HCPCS: 36415; 71045; 74176; 80053; 81001; 81025; 83690; 85025; 96374; 96375; 99285; J1885; J2270

== ENCOUNTER 2019-07-06 20:30 | Emergency (ER) | payer OTHER ==
[~2019-07-06] VITALS: Ht 170.2 cm; Wt 87.0 kg
[~2019-07-06 20:30] MED LIST changes: +DOXY100C2 PO; +TRAZ-123 PO; -TRAZ-86 PO
[2019-07-06 20:40] VITALS: BP 129/69
--- NOTE | 2019-07-06 20:51 | PHYS DOC ---
Past Medical History Past Medical History: DVT, Hypertension, Other Additional Past Medical Histor: PULMONARY EMBOLISM (ALLY TANNER APRN) Past Surgical History: No Surgical History (ALLY TANNER APRN) Alcohol Use: Occasionally Drug Use: None (ALLY TANNER APRN) Attending Signature I have participated in the care of this patient and I have reviewed and agree with all pertinent clinical information above including history, exam, and landen mmendations. (SUSAN MORLEY MD) Adult General Chief Complaint Chief Complaint: VAGINAL PROBLEM HPI HPI Patient is a 28 year old AA female, accompanied by her daughter, who presents to the emergency department with concerns of possible infection of her new vaginal piercing. Patient states that she had the area above her clitoris pierced 2 days ago. She noticed some bloody tinged crusting on the upper ball of the jewelry today. She denies any redness, warmth, or purulent drainage from the area. She denies any fever. She just wants to make sure that the piercing is okay. Patient states that she has been cleansing the new jewelry with salt water as directed by her steam pan sponger. She currently eyes any pain. All other ROS is neg unless otherwise noted in HPI. (ALLY TANNER APRN) Review of Systems Review of Systems See Above (ALLY TANNER APRN) Allergies Allergies Allergies Coded Allergies Type Severity Reaction Last Updated Verified pineapple Allergy Unknown 01/09/19 Yes (SUSAN MORLEY MD) Physical Exam Physical Exam See Above Constitutional: Well developed, well nourished, no acute distress, non-toxic appearance. [] HENT: Normocephalic, atraumatic, bilateral external ears normal,nose normal. [] Eyes: PERRLA, EOMI, conjunctiva normal, no discharge. [] Neck: Normal range of motion, no stridor. [] Cardiovascular:Heart rate regular rhythm Lungs & Thorax: Respirations even and unlabored, no retractions, no respiratory distress Skin: Warm, dry, no erythema, no rash Pelvic Exam: Isabel Macias RN Abdomen: Nontender, soft External Genitalia: Normal Skin, vertical piercing noted from lower pubis to above clitoris without surrounding edema, erythema, or purulent drainage; and additional piercing is noted below this area to the vulva. Speculum: Not done Extremities: No cyanosis, ROM intact Neurologic: Alert and oriented X 3, no focal deficits noted. [] Psychologic: Affect normal, judgement normal, mood normal. [] (ALLY TANNER APRN) Current Patient Data Vital Signs Vital Signs Date Time Temp Pulse Resp B/P (MAP) Pulse Ox O2 Delivery O2 Flow Rate FiO2 07/06/19 20:40 98.2 86 18 129/69 (89) 98 Room Air 98.2 (SUSAN MORLEY MD) EKG EKG [] (ALLY TANNER APRN) Radiology/Procedures Radiology/Procedures [] (ALLY TANNER APRN) Course & Med Decision Making Course & Med Decision Making Pertinent Labs and Imaging studies reviewed. (See chart for details) [] (ALLY TANNER APRN) Dragon Disclaimer Dragon Disclaimer This electronic medical record was generated, in whole or in part, using a voice recognition dictation system. (ALLY TANNER APRN) Departure Departure Impression: Primary Impression: Inflammation associated with voluntary body piercing Additional Impression: History of body piercing Disposition: HOME, SELF-CARE Condition: STABLE Referrals: UNKNOWN PCP NAME (PCP) Patient Instructions: Piercing, Care After Additional Instructions: Tylenol or ibuprofen as needed for pain. Recommend cleansing area with salt water as instructed by steam pan sponger. Follow-up with your primary care doctor if symptoms persist. Return to the ER if he develops a fever, redness, or worsening symptoms. Problem Qualifiers ALLY TANNER APRN Jul 06, 2019 20:51 SUSAN MORLEY MD Jul 07, 2019 01:37
== END 2019-07-06 20:55 | disposition home or self-care (01) ==
LOC: ER 20:30
DX: T19.2XXA Foreign body in vulva and vagina, initial encounter (principal); I10 Essential (primary) hypertension; N76.0 Acute vaginitis; Z91.018 Allergy to other foods; Z86.711 Personal history of pulmonary embolism; Z86.718 Personal history of other venous thrombosis and embolism; W49.04XA Ring or other jewelry causing external constriction, initial encounter; Y93.89 Activity, other specified; Y92.89 Other specified places as the place of occurrence of the external cause; Y99.8 Other external cause status
CPT/HCPCS: 99283

== ENCOUNTER 2019-09-23 15:32 | Emergency (ER) | payer OTHER ==
[~2019-09-23] VITALS: Ht 170.2 cm; Wt 89.0 kg
[2019-09-23 16:02] VITALS: BP 158/96
--- NOTE | 2019-09-23 16:28 | PHYS DOC ---
Past Medical History Past Medical History: DVT, Hypertension, Other Additional Past Medical Histor: PULMONARY EMBOLISM Past Surgical History: No Surgical History Smoking Status: Current Every Day Smoker Alcohol Use: Occasionally Drug Use: None General Adult EDM: Chief Complaint: MULTIPLE COMPLAINTS HPI: HPI: Patient is a 29 year old female with history of hypertension who presents to the ED today complaining of 1 white patch on her left throat that she noted today. Patient states approximately a week ago she was started on amoxicillin f or ear infection and throat infection. She states she still on the medication but today she noted a white patch on her throat. Denies any fever or coughing. Denies any difficulty swallowing or breathing. Review of Systems: Review of Systems: Constitutional: Denies fever or chills. [] Eyes: Denies change in visual acuity. [] HENT: Reports white patch on her throat. Denies nasal congestion Respiratory: Denies cough or shortness of breath. [] Cardiovascular: Denies chest pain or edema. [] GI: Denies abdominal pain, nausea, vomiting, bloody stools or diarrhea. [] : Denies dysuria. [] Musculoskeletal: Denies back pain or joint pain. [] Integument: Denies rash. [] Neurologic: Denies headache, focal weakness or sensory changes. [] Lymphatic: Denies swollen glands. [] Psychiatric: Denies depression or anxiety. [] Heart Score: Risk Factors: Risk Factors: DM, Current or recent (<one month) smoker, HTN, HLP, family history of CAD, obesity. Risk Scores: Score 0 - 3: 2.5% MACE over next 6 weeks - Discharge Home Score 4 - 6: 20.3% MACE over next 6 weeks - Admit for Clinical Observation Score 7 - 10: 72.7% MACE over next 6 weeks - Early Invasive Strategies Allergies: Allergies: Allergies Coded Allergies Type Severity Reaction Last Updated Verified pineapple Allergy Unknown 01/09/19 Yes Physical Exam: PE: Constitutional: Well developed, well nourished, no acute distress, non-toxic appearance. [] HENT: Normocephalic, atraumatic, bilateral external ears normal, oropharynx moist, no oral exudates, nose normal. [] Airways open +2 tonsils with no erythema, no significant exudate +2 anterior cervical adenopathy Eyes: PERRLA, EOMI, conjunctiva normal, no discharge. [] Neck: Normal range of motion, no tenderness, supple, no stridor. [] Cardiovascular:Heart rate regular rhythm, no murmur [] Lungs & Thorax: Bilateral breath sounds clear to auscultation [] Abdomen: Bowel sounds normal, soft, no tenderness, no masses, no pulsatile masses. [] Skin: Warm, dry, no erythema, no rash. [] Back: No tenderness, no CVA tenderness. [] Extremities: No tenderness, no cyanosis, no clubbing, ROM intact, no edema. [] Neurologic: Alert and oriented X 3, normal motor function, normal sensory function, no focal deficits noted. [] Psychologic: Affect normal, judgement normal, mood normal. [] Current Patient Data: Vital Signs: Vital Signs Date Time Temp Pulse Resp B/P (MAP) Pulse Ox O2 Delivery O2 Flow Rate FiO2 09/23/19 16:02 98.4 82 16 158/96 (116) 99 Room Air 98.4 EKG: EKG: [] Radiology/Procedures: Radiology/Procedures: [] Course & Med Decision Making: Course & Med Decision Making Pertinent Labs and Imaging studies reviewed. (See chart for details) This is a 29-year-old female patient presenting to the ED today complaining of a white patch on her throat. Patient is currently on amoxicillin for otitis media and tract infection. On physical exam no significant exudate was noted. Airways open. Talked to patient and reassured her. Recommended she continue taking the amoxicillin. She reports she also has prednisone at home. Encourage her to take it as well as Zyrtec. She eloped from the ED Dragon Disclaimer: Tracee Disclaimer: This electronic medical record was generated, in whole or in part, using a voice recognition dictation system. Departure Departure Impression: Primary Impression: Sore throat Disposition: AGAINST MEDICAL ADVICE Condition: STABLE Referrals: UNKNOWN PCP NAME (PCP) TINA AN APRN Sep 23, 2019 16:28
== END 2019-09-23 16:27 | disposition home or self-care (01) ==
LOC: ER 15:32
DX: J02.9 Acute pharyngitis, unspecified (principal); I10 Essential (primary) hypertension; F17.200 Nicotine dependence, unspecified, uncomplicated; Z86.718 Personal history of other venous thrombosis and embolism; Z86.711 Personal history of pulmonary embolism; Z91.018 Allergy to other foods
CPT/HCPCS: 99282

== ENCOUNTER 2019-11-12 01:19 | Emergency (ER) | payer OTHER ==
[~2019-11-12] VITALS: Ht 170.2 cm; Wt 86.3 kg
[2019-11-12] MEDS ORDERED: LIDOCAINE 1% Multi-Dose 20 ML VIAL. INJ ONE (02:00)
--- NOTE | 2019-11-12 02:05 | RAD ---
EXAM: Right foot 3 views. HISTORY: Injury, foreign body COMPARISON: None. FINDINGS: Three views of the right foot are obtained. There is a soft tissue defect along the dorsum of the metatarsals. There is no radiopaque foreign body. There is a chronic healed fracture of the second proximal phalanx. A small chronic avulsion fragment is suspected along the medial aspect of the fifth proximal interphalangeal joint. No acute fractures are seen. Alignment is normal. Joint spaces are maintained. IMPRESSION: 1. Soft tissue defect along the dorsum of the metatarsals. No radiopaque foreign body. Electronically signed by: Jenny Polanco MD (11/12/2019 2:03 AM) [facility]
[2019-11-12] MEDS ORDERED: TRAM50TA PO (02:44)
[2019-11-12] MEDS ORDERED: DIPH,PERTUSS(ACELL),TET VAC/PF 0.5 ML SYRINGE. VAX IM ONE (02:45)
[2019-11-12] MEDS ORDERED: CONTRAST GIVEN. MC PRN (02:45)
--- NOTE | 2019-11-12 02:45 | PHYS DOC ---
Past Medical History Past Medical History: DVT, Hypertension, Other Additional Past Medical Histor: PULMONARY EMBOLISM Past Surgical History: No Surgical History Smoking Status: Current Every Day Smoker Alcohol Use: Occasionally Drug Use: None General Adult EDM: Chief Complaint: LACERATION/AVULSION HPI: HPI: Patient is a 29 year old female who presents with laceration to her right foot. Patient states that she was out in the field and cut her foot but does not know what she cut her foot on. She states that her friend said that they thought she caught it on a nail. Patient is not up-to-date on tetanus. She denies any other injuries. Rates pain at a 10 out of 10. [] Review of Systems: Review of Systems: Constitutional: Denies fever or chills. [] Respiratory: Denies cough or shortness of breath. [] Cardiovascular: Denies chest pain or edema. [] Musculoskeletal: Complains of right foot pain and laceration. [] Integument: Denies rash. [] Neurologic: Complains of tingling to toes. [] Heart Score: Risk Factors: Risk Factors: DM, Current or recent (<one month) smoker, HTN, HLP, family history of CAD, obesity. Risk Scores: Score 0 - 3: 2.5% MACE over next 6 weeks - Discharge Home Score 4 - 6: 20.3% MACE over next 6 weeks - Admit for Clinical Observation Score 7 - 10: 72.7% MACE over next 6 weeks - Early Invasive Strategies Current Medications: Current Medications Medications (Trade) Dose Ordered Sig/[facility] Start Time Stop Time Status Last Admin Dose Admin Lidocaine HCl (Lidocaine 1% 20ml Vial) 20 ml 1X ONCE 11/12/19 02:00 11/12/19 02:01 DC Allergies: Allergies: Allergies Coded Allergies Type Severity Reaction Last Updated Verified pineapple Allergy Unknown 01/09/19 Yes Physical Exam: PE: Constitutional: Well developed, well nourished, no acute distress, non-toxic appearance. [] Neck: Normal range of motion, no tenderness, supple, no stridor. [] Cardiovascular:Heart rate regular rhythm [] Lungs & Thorax: Bilateral breath sounds clear to auscultation [] Skin: Right foot demonstrates 6.5 cm laceration to the dorsum of the foot in the shape of the. Laceration extends through subcutaneous tissue. There is no muscle or tendon involvement. Laceration has fairly sharp margins. [] Extremities: Laceration as noted above. [] Current Patient Data: Vital Signs: Vital Signs Date Time Temp Pulse Resp B/P (MAP) Pulse Ox O2 Delivery O2 Flow Rate FiO2 11/12/19 01:44 98.4 106 18 138/95 (109) 100 Room Air 98.4 EKG: EKG: [] Radiology/Procedures: Radiology/Procedures: [] Course & Med Decision Making: Course & Med Decision Making Pertinent Labs and Imaging studies reviewed. (See chart for details) Wound cleaned and draped in normal sterile fashion and anesthetized with 1% lidocaine without epinephrine. After anesthetizing, wound was flushed with sterile saline. No foreign body identified. At this point laceration was closed with a total of 16 simple interrupted sutures utilizing 5-0 Prolene suture material. Very good reapproximation of wound margins is noted. Patient tolerated procedure well. Dragon Disclaimer: Dragon Disclaimer: This electronic medical record was generated, in whole or in part, using a voice recognition dictation system. Departure Departure Impression: Primary Impression: Laceration of right foot Qualified Codes: S91.311A - Laceration without foreign body, right foot, initial encounter Disposition: HOME, SELF-CARE Condition: STABLE Referrals: UNKNOWN PCP NAME (PCP) Patient Instructions: Laceration Care, Adult Scripts Tramadol Hcl (TRAMADOL HCL) 50 Mg Tablet 50 MG PO Q6HRS PRN for PAIN, #12 TAB Prov: EUGENIO LEYVA Jr. DO 11/12/19 EUGENIO LEYVA Jr. DO November 12, 2019 02:45
[2019-11-12 03:10] VITALS: BP 141/77
== END 2019-11-12 03:00 | disposition home or self-care (01) ==
LOC: ER 01:19
DX: S91.311A Laceration without foreign body, right foot, initial encounter (principal); I10 Essential (primary) hypertension; F17.200 Nicotine dependence, unspecified, uncomplicated; Z86.718 Personal history of other venous thrombosis and embolism; Z91.018 Allergy to other foods; W26.8XXA Contact with other sharp object(s), not elsewhere classified, initial encounter; Y93.89 Activity, other specified; Y92.89 Other specified places as the place of occurrence of the external cause; Y99.8 Other external cause status
CPT/HCPCS: 12042; 73630; 90471; 90715; 99284; J3490

== ENCOUNTER 2019-11-18 17:45 | Emergency (ER) | payer OTHER ==
[~2019-11-18] VITALS: Ht 170.2 cm; Wt 86.3 kg
[~2019-11-18 17:45] MED LIST changes: +TRAM50TA PO
[2019-11-18] MEDS ORDERED: LIDOCAINE/EPI/TETRACAINE TOPICAL GEL 3 ML. TP ONE (19:00)
[2019-11-18] MEDS ORDERED: LIDOCAINE 1% PF 2 ML VIAL. INJ ONE (19:00)
[2019-11-18] MEDS: MORPHINE SULFATE 10 MG/ML VIAL. IM ONE ×2 (19:00→19:09)
[2019-11-18] MEDS ORDERED: cefTRIAXone IM 1 GM VIAL IM ONE (19:00)
--- NOTE | 2019-11-18 19:37 | PHYS DOC ---
Past Medical History Past Medical History: DVT, Hypertension, Other Additional Past Medical Histor: PULMONARY EMBOLISM (TINA AN APRN) Past Surgical History: No Surgical History (TINA AN APRN) Smoking Status: Current Every Day Smoker Additional Information: 0.5 PPD Alcohol Use: Occasionally Drug Use: None (TINA AN APRN) General Adult EDM: Chief Complaint: FOOT INJURY PAIN HPI: HPI: Patient is a 29 year old female who presents to the ED today with infected laceration site. Patient reports on October she had stitches done on the right foot, the next day since she states it started draining yellow purulent material. She was seen by the PCP, was started on Bactrim. Today the PCP sent her into get an x-ray to rule out osteomyelitis. Patient denies any fever. (TINA AN APRN) Review of Systems: Review of Systems: Constitutional: Denies fever or chills. [] Musculoskeletal: Denies back pain or joint pain. [] Integument: Reports right foot laceration infection Neurologic: Denies headache, focal weakness or sensory changes. [] Psychiatric: Denies depression or anxiety. [] (TINA AN APRN) Heart Score: Risk Factors: Risk Factors: DM, Current or recent (<one month) smoker, HTN, HLP, family history of CAD, obesity. Risk Scores: Score 0 - 3: 2.5% MACE over next 6 weeks - Discharge Home Score 4 - 6: 20.3% MACE over next 6 weeks - Admit for Clinical Observation Score 7 - 10: 72.7% MACE over next 6 weeks - Early Invasive Strategies (TINA AN APRN) Current Medications: Current Medications Medications (Trade) Dose Ordered Sig/Renard Start Time Stop Time Status Last Admin Dose Admin Ceftriaxone Sodium (Rocephin Im) 1 gm 1X ONCE 11/18/19 19:00 11/18/19 19:01 DC 11/18/19 19:08 1 GM Lidocaine HCl (Xylocaine-Mpf 1% 2ml Vial) 2 ml 1X ONCE 11/18/19 19:00 11/18/19 19:01 DC Morphine Sulfate (Morphine Sulfate) 5 mg 1X ONCE 11/18/19 19:00 11/18/19 19:01 DC Tetracaine/ Epinephrine/ Lidocaine (Let (Jdyn-Njsovwd-Vmvig) Gel) 3 ml 1X ONCE 6/5/20 19:00 11/18/19 19:01 DC 11/18/19 19:02 3 ML (TINA AN APRN) Allergies: Allergies: Allergies Coded Allergies Type Severity Reaction Last Updated Verified pineapple Allergy Unknown 01/09/19 Yes (TINA AN APRN) Physical Exam: PE: Constitutional: Well developed, well nourished, no acute distress, non-toxic appearance. [] Skin: Dorsal aspect of the right foot with mild swelling, there is a laceration site with a dehisced wound draining yellow purulent material. There is cellulitis around this laceration site. +2 right pedal pulse. Full range of motion to the right toes. Back: No tenderness, no CVA tenderness. [] Extremities: No tenderness, no cyanosis, no clubbing, ROM intact, no edema. [] Neurologic: Alert and oriented X 3, normal motor function, normal sensory function, no focal deficits noted. [] Psychologic: Affect normal, judgement normal, mood normal. [] (TINA AN APRN) Current Patient Data: Vital Signs: Vital Signs Date Time Temp Pulse Resp B/P (MAP) Pulse Ox O2 Delivery O2 Flow Rate FiO2 11/18/19 18:20 98.6 90 20 129/92 (104) 100 Room Air 98.6 (TINA AN APRN) EKG: EKG: [] (TINA AN APRN) Radiology/Procedures: Radiology/Procedures: []PROCEDURE: FOOT RIGHT 3V Exam: Right foot 3 views INDICATION: Cellulitis, rule out osteomyelitis TECHNIQUE: Frontal, lateral and oblique views of the right foot Comparisons: None FINDINGS: Bone mineralization is normal. No acute or healed fractures. There is soft tissue swelling overlying the dorsum of the forefoot. Joint spaces are well-maintained. IMPRESSION: Soft tissue swelling overlying the dorsum of the forefoot. No underlying osseous abnormality identified. Electronically signed by: Kip Grimaldo MD (11/18/2019 7:56 PM) [id number] DICTATED and SIGNED BY: KIP GRIMALDO MD DATE: 11/18/191955 Indication: abscess of the right foot laceration site Procedure: The patient was positioned appropriately. Local anesthesia was LET. 16 stitches were removed from the laceration site and moderate amount of purulent bloody material was expressed. The drainage cavity was irrigated and covered with sterile gauze. The patients tetanus status updated as needed. The patient tolerated the procedure well. Complications: none. (TINA AN APRN) Course & Med Decision Making: Course & Med Decision Making Pertinent Labs and Imaging studies reviewed. (See chart for details) This is a 29-year-old female patient presenting to the ED today with an infected laceration site, the laceration occurred on November 11, she had stitches placed, the area became infected a couple days later. She was started on Bactrim. Was sent to the ED by the PCP to rule out osteomyelitis. Right foot x-rays were negative for osteomyelitis. Stitches were removed from patient's laceration site and a moderate amount of pus was drained. The wound will be left open to heal. Patient was given Rocephin IM in the ED, discharged on cephalexin, instructed to continue taking the Bactrim. Provided wound care instructions and return precautions. (TINA AN APRN) Dragon Disclaimer: Dragon Disclaimer: This electronic medical record was generated, in whole or in part, using a voice recognition dictation system. (TINA AN APRN) Departure Departure Impression: Primary Impression: Foot abscess, right Disposition: 01 HOME, SELF-CARE Condition: STABLE Referrals: UNKNOWN PCP NAME (PCP) follow up with your doctor next week Patient Instructions: Abscess, Care After Additional Instructions: We removed the stitches from the right foot the wound will have to heal from inside out. Keep the area clean and dry. Continue taking the Bactrim as well as the cephalexin prescribed. Please follow-up with your doctor next week. Come back to the ED at any point symptoms worsen. Scripts Oxycodone/Apap 5-325 (PERCOCET 5-325 MG TABLET ) 1 Each Tablet 1 TAB PO Q6HRS PRN for PAIN MDD 2 Tablet(s) for 30 Days, #20 TAB 0 Refills Prov: TINA AN APRN 11/18/19 Cephalexin (CEPHALEXIN) 500 Mg Tablet 1 TAB PO QID, #40 TAB Prov: TINA AN APRN 11/18/19 Justicifation of Admission Dx: Justifications for Admission: Justification of Admission Dx: N/A (TINA AN APRN) Attending Signature Attending Signature I have participated in the care of this patient and I have reviewed and agree with all pertinent clinical information above including history, exam, and recommendations. (KADY JOHNSON DO) TINA AN APRN Nov 18, 2019 19:37 KADY JOHNSON DO Nov 18, 2019 22:27
--- NOTE | 2019-11-18 19:59 | RAD ---
Exam: Right foot 3 views INDICATION: Cellulitis, rule out osteomyelitis TECHNIQUE: Frontal, lateral and oblique views of the right foot Comparisons: None FINDINGS: Bone mineralization is normal. No acute or healed fractures. There is soft tissue swelling overlying the dorsum of the forefoot. Joint spaces are well-maintained. IMPRESSION: Soft tissue swelling overlying the dorsum of the forefoot. No underlying osseous abnormality identified. Electronically signed by: Kip Wolf MD (11/18/2019 7:56 PM) [id number]
[2019-11-18] MEDS ORDERED: OXYC1TAB15 PO (20:19)
[2019-11-18] MEDS ORDERED: CEPH500T PO (20:19)
[2019-11-18 20:34] VITALS: BP 135/98
== END 2019-11-18 20:34 | disposition home or self-care (01) ==
LOC: ER 17:45
DX: L02.611 Cutaneous abscess of right foot (principal); R60.0 Localized edema; I10 Essential (primary) hypertension; F17.200 Nicotine dependence, unspecified, uncomplicated; Z86.718 Personal history of other venous thrombosis and embolism
CPT/HCPCS: 10060; 29515; 73630; 96372; 99284; J0696; J2270

== ENCOUNTER 2020-02-20 20:03 | Emergency (ER) | payer OTHER ==
[~2020-02-20] VITALS: Ht 172.7 cm; Wt 75.0 kg
[~2020-02-20 20:03] MED LIST changes: +CEPH500T PO; +OXYC1TAB15 PO
[2020-02-20 20:54] VITALS: BP 166/79
--- NOTE | 2020-02-20 21:03 | PHYS DOC ---
Past Medical History Past Medical History: DVT, Hypertension, Other Additional Past Medical Histor: PULMONARY EMBOLISM Past Surgical History: No Surgical History Smoking Status: Current Every Day Smoker Alcohol Use: Occasionally Drug Use: None General Adult EDM: Chief Complaint: SHORTNESS OF BREATH HPI: HPI: Patient is a 29 year old female past medical history of pulmonary embolism and bronchitis presents with a chief complaint of shortness of breath. Triage history states shortness of breath x1 week. Patient tells me she woke up this a.m. with shortness of breath. Patient also states she has discomfort in her chest. Patient was evaluated previously by primary care physician outpatient CT chest to evaluate for pulmonary embolism was scheduled patient states she missed appointment. Patient is requesting CT of her chest to rule out PE at this time. Patient has some cough with some sputum production. She has some chest discomfort. On exam patient is alert and oriented x4. She is in no acute distress. EKG performed showed sinus rhythm with a heart rate of 100. Patient's oxygen saturation 100% on room air. Review of Systems: Review of Systems: Constitutional: Denies fever or chills. [] Eyes: Denies change in visual acuity. [] HENT: Denies nasal congestion or sore throat. [] Respiratory: Positive shortness of breath positive cough Cardiovascular: Positive chest pain denies edema. [] GI: Denies abdominal pain, nausea, vomiting, bloody stools or diarrhea. [] : Denies dysuria. [] Musculoskeletal: Denies back pain or joint pain. [] Integument: Denies rash. [] Neurologic: Denies headache, focal weakness or sensory changes. [] Endocrine: Denies polyuria or polydipsia. [] Lymphatic: Denies swollen glands. [] Psychiatric: Denies depression or anxiety. [] Heart Score: Risk Factors: Risk Factors: DM, Current or recent (<one month) smoker, HTN, HLP, family history of CAD, obesity. Risk Scores: Score 0 - 3: 2.5% MACE over next 6 weeks - Discharge Home Score 4 - 6: 20.3% MACE over next 6 weeks - Admit for Clinical Observation Score 7 - 10: 72.7% MACE over next 6 weeks - Early Invasive Strategies Allergies: Allergies: Allergies Coded Allergies Type Severity Reaction Last Updated Verified pineapple Allergy Unknown 01/09/19 Yes Physical Exam: PE: Constitutional: Well developed, well nourished, no acute distress, non-toxic appearance. [] HENT: Normocephalic, atraumatic, bilateral external ears normal, oropharynx moist, no oral exudates, nose normal. [] Eyes: PERRLA, EOMI, conjunctiva normal, no discharge. [] Neck: Normal range of motion, no tenderness, supple, no stridor. [] Cardiovascular:Heart rate regular rhythm, no murmur [] Lungs & Thorax: Bilateral breath sounds clear to auscultation [] Abdomen: Bowel sounds normal, soft, no tenderness, no masses, no pulsatile masses. [] Skin: Warm, dry, no erythema, no rash. [] Back: No tenderness, no CVA tenderness. [] Extremities: No tenderness, no cyanosis, no clubbing, ROM intact, no edema. [] Neurologic: Alert and oriented X 3, normal motor function, normal sensory function, no focal deficits noted. [] Psychologic: Affect normal, judgement normal, mood normal. [] Current Patient Data: Vital Signs: Vital Signs Date Time Temp Pulse Resp B/P (MAP) Pulse Ox O2 Delivery O2 Flow Rate FiO2 02/20/20 20:11 99.3 98 18 140/99 (113) 98 Room Air 99.3 EKG: EKG: [] Radiology/Procedures: Radiology/Procedures: [] Impression: CTA Chest with contrast: Clinical History: Reason: pe protocal SOB, hx of PE, missed outpatient appoint for CT Shortness of breath. Axial helical images of the chest were obtained after the administration of 90 cc of IV Omni 350 and timed appropriately for a pulmonary arterial study. Conventional axial reconstruction was performed in addition to coronal, sagittal and bilateral oblique MIP (maximum intensity projection). This study was ordered to detect possible pulmonary embolism. There are no filling defects to suggest pulmonary embolism. The more peripheral subsegmental pulmonary arteries are not well opacified limiting our sensitivity for small peripheral pulmonary emboli. The lungs and pleural margins are clear. There is no mediastinal or hilar lymphadenopathy. The thoracic aorta appears normal. Impression: 1. No evidence of pulmonary embolism. 2. No significant findings. Course & Med Decision Making: Course & Med Decision Making Pertinent Labs and Imaging studies reviewed. (See chart for details) [] Based on initial exam patient in no acute distress. She is requesting a CT Sadie of her chest to rule out PE. Patient states she has no concern for COVID and is declining COVID testing. CTA -- no PE findinds No lung abnormalities Tracee Disclaimer: Tracee Disclaimer: This electronic medical record was generated, in whole or in part, using a voice recognition dictation system. Departure Departure Impression: Primary Impression: Shortness of breath Additional Impression: Bronchitis Disposition: HOME, SELF-CARE Condition: STABLE Referrals: UNKNOWN PCP NAME (PCP) Patient Instructions: Bronchitis Scripts Prednisone (PREDNISONE) 20 Mg Tablet 1 TAB PO UD for 12 Days, #15 TAB Take 2 tabs days 1,2,3 1.5 tabs days 3,4,5 1 tab days 6,7,8 0.5 tab days 9,10,11 Prov: LUIS WATTS I DO 02/20/20 Justicifation of Admission Dx: Justifications for Admission: Justification of Admission Dx: N/A LUIS WATTS DO Feb 20, 2020 21:02
[2020-02-20] MEDS ORDERED: CONTRAST GIVEN. MC PRN ×2 (21:15→22:30)
[2020-02-20] MEDS ORDERED: IOHEXOL 350 MG/ML 100 ML VIAL. IV ONE ×2 (21:15→22:15)
[2020-02-20 21:26] LABS: BASO # 0.1 x10^3/uL (0.0-0.2); BASO % 1 % (0-3); EOS # 0.1 x10^3/uL (0.0-0.7); EOS % 2 % (0-3); HEMATOCRIT 42.8 % (36.0-47.0); HEMOGLOBIN 15.2 g/dL (12.0-15.5); LYMPH # 3.3 x10^3/uL (1.0-4.8); LYMPH % 47 % (24-48); MEAN CORPUSCULAR HEMOGLOBIN 33 pg (25-35); MEAN CORPUSCULAR HGB CONC 36 g/dL (31-37); MEAN CORPUSCULAR VOLUME 93 fL (79-100); MONO # 0.5 x10^3/uL (0.0-1.1); MONO % 7 % (0-9); NEUT # 3.2 x10^3/uL (1.8-7.7); NEUT % 44 % (31-73); PLATELET COUNT 260 x10^3/uL (140-400); RED BLOOD COUNT 4.62 x10^6/uL (3.50-5.40); RED CELL DISTRIBUTION WIDTH 13.3 % (11.5-14.5); WHITE BLOOD COUNT 7.2 x10^3/uL (4.0-11.0)
[2020-02-20 21:44] LABS: CALCIUM 8.9 mg/dL (8.5-10.1); CREATININE 0.8 mg/dL (0.6-1.0); GFR 101.9; POTASSIUM 3.2 mmol/L (3.5-5.1)
[2020-02-20 21:50] LABS: ALBUMIN 3.3 g/dL (3.4-5.0); ALBUMIN/GLOBULIN RATIO 0.8 (1.0-1.7); TOTAL BILIRUBIN 0.2 mg/dL (0.2-1.0); TOTAL PROTEIN 7.3 g/dL (6.4-8.2)
--- NOTE | 2020-02-20 22:28 | RAD ---
CTA Chest with contrast: Clinical History: Reason: pe protocal SOB, hx of PE, missed outpatient appoint for CT Shortness of breath. Axial helical images of the chest were obtained after the administration of 90 cc of IV Omni 350 and timed appropriately for a pulmonary arterial study. Conventional axial reconstruction was performed in addition to coronal, sagittal and bilateral oblique MIP (maximum intensity projection). This study was ordered to detect possible pulmonary embolism. There are no filling defects to suggest pulmonary embolism. The more peripheral subsegmental pulmonary arteries are not well opacified limiting our sensitivity for small peripheral pulmonary emboli. The lungs and pleural margins are clear. There is no mediastinal or hilar lymphadenopathy. The thoracic aorta appears normal. Impression: 1. No evidence of pulmonary embolism. 2. No significant findings. PQRS Compliance Statement: One or more of the following individualized dose reduction techniques were utilized for this examination: 1. Automated exposure control 2. Adjustment of the mA and/or kV according to patient size 3. Use of iterative reconstruction technique Electronically signed by: Maco Tompkins III, MD (02/20/2020 10:25 PM) [facility]
[2020-02-20] MEDS ORDERED: PRED20TA PO (22:34)
--- NOTE | 2020-02-22 04:21 | EKG ---
[facility] [address] [place] [address] Test Date: 2020-02-20 Test Time: 20:25:54 Pat Name: AFUA PRICE Department: Room: Gender: F Supervisor Color Making: : 1990 Requested By: LUIS WATTS Order Number: [id number] Reading MD: Measurements Intervals [place] Rate: 100 P: 6 NE: 178 QRS: 72 QRSD: 86 T: 35 QT: 398 QTc: 517 Interpretive Statements SINUS RHYTHM PROLONGED QT NO SPECIFIC ECG ABNORMALITIES RI6.02 No previous ECG available for comparison
== END 2020-02-20 22:41 | disposition home or self-care (01) ==
LOC: ER 20:03
DX: J40 Bronchitis, not specified as acute or chronic (principal); I10 Essential (primary) hypertension; Z86.718 Personal history of other venous thrombosis and embolism; Z86.711 Personal history of pulmonary embolism; F17.200 Nicotine dependence, unspecified, uncomplicated; Z91.018 Allergy to other foods
CPT/HCPCS: 36415; 71275; 80053; 81025; 85025; 99285; Q9967; 93005; 99284

== ENCOUNTER 2020-04-02 12:14 | Emergency (ER) | payer OTHER ==
[~2020-04-02] VITALS: Ht 170.2 cm; Wt 88.1 kg
[~2020-04-02 12:14] MED LIST changes: +PRED20TA PO
[2020-04-02] MEDS ORDERED: IV NORMAL SALINE 1000ML BAG 1,000 ML IV ONE (13:00)
[2020-04-02 13:30] LABS: BASO # 0.1 x10^3/uL (0.0-0.2); BASO % 1 % (0-3); EOS # 0.1 x10^3/uL (0.0-0.7); EOS % 1 % (0-3); HEMATOCRIT 44.8 % (36.0-47.0); HEMOGLOBIN 15.4 g/dL (12.0-15.5); LYMPH % 38 % (24-48); MEAN CORPUSCULAR HEMOGLOBIN 32 pg (25-35); MEAN CORPUSCULAR HGB CONC 34 g/dL (31-37); MEAN CORPUSCULAR VOLUME 92 fL (79-100); MONO # 0.6 x10^3/uL (0.0-1.1); MONO % 7 % (0-9); NEUT # 4.3 x10^3/uL (1.8-7.7); NEUT % 53 % (31-73); PLATELET COUNT 298 x10^3/uL (140-400); RED BLOOD COUNT 4.89 x10^6/uL (3.50-5.40); RED CELL DISTRIBUTION WIDTH 13.2 % (11.5-14.5); WHITE BLOOD COUNT 8.1 x10^3/uL (4.0-11.0)
[2020-04-02 13:34] LABS: CALCIUM 9.2 mg/dL (8.5-10.1); CREATININE 0.7 mg/dL (0.6-1.0); GFR 118.9; POTASSIUM 3.2 mmol/L (3.5-5.1)
[2020-04-02 13:38] LABS: C-REACTIVE PROTEIN 0.9 mg/L (0-3.3)
--- NOTE | 2020-04-02 14:21 | RAD ---
EXAMINATION: CHEST AP ONLY CLINICAL HISTORY: Reason: sob, possible covid / Spl. Instructions: / History: EXAM DATE/TIME: 04/02/2020 12:29 PM COMPARISON: 04/15/2019 FINDINGS: Lines, Tubes, and Devices: None. Cardiomediastinal Silhouette: Within normal limits. Lungs and Pleura: No evidence of focal airspace consolidation or pleural effusion. Pulmonary vasculature unremarkable. Bones and Soft Tissues: No acute osseous abnormality. IMPRESSION: No evidence of acute cardiopulmonary abnormality or significant interval change. Electronically signed by: Vikram Meraz DO (04/02/2020 2:17 PM) [id number]
[2020-04-02] MEDS ORDERED: cefTRIAXone IV Push 1 GM VIAL. IVP ONE (14:30)
[2020-04-02] MEDS ORDERED: DEXAMETHASONE SOD PHOS 4 MG/ML VIAL IVP ONE (14:30)
[2020-04-02] MEDS ORDERED: PRED50TA PO (14:49)
--- NOTE | 2020-04-02 14:49 | ED.ADGEN ---
Past Medical History Past Medical History: Bronchitis, Hypertension Additional Past Medical Histor: P.E. Past Surgical History: No Surgical History Smoking Status: Current Every Day Smoker Additional Information: 0.5ppd Alcohol Use: Occasionally Drug Use: None General Adult EDM: Chief Complaint: SHORTNESS OF BREATH HPI: HPI: Patient is a 29-year-old female who presents to the emergency room complaining of intermittent shortness of breath. She was seen here for this at the beginning of February. She states it got better and then started again 2 weeks ago. She feels this is similar to when she had a blood clot. Sometimes she feels completely normal. She has no chest pain. She has no URI symptoms. Review of Systems: Review of Systems: General: Denies fever, chills, sweats, fatigue Eyes: Denies drainage, blurred vision, eye redness HENT: Denies rhinorrhea, sore throat, earache Respiratory: Denies cough, wheezing. Reports shortness of breath Cardiac: Denies edema, palpitations, chest pain GI: Denies abdominal pain, Nausea, vomiting MSK: Denies back pain, neck pain Skin: Denies rash, jaundice Neuro: Denies headache, dizziness Psychiatric: Denies SI/HI Current Medications: Current Medications Medications (Trade) Dose Ordered Sig/Renard Start Time Stop Time Status Last Admin Dose Admin Ceftriaxone Sodium (Rocephin) 1 gm 1X ONCE 04/02/20 14:30 04/02/20 14:31 Cancel Dexamethasone Sodium Phosphate (Decadron) 10 mg 1X ONCE 04/02/20 14:30 04/02/20 14:32 DC Sodium Chloride 1,000 ml @ 1,000 mls/hr 1X ONCE 04/02/20 13:00 04/02/20 13:59 DC 04/02/20 13:16 1,000 MLS/HR Allergies: Allergies: Allergies Coded Allergies Type Severity Reaction Last Updated Verified pineapple Allergy Unknown 01/09/19 Yes Physical Exam: PE: General: Awake, alert, NAD. Well Nourished, well hydrated. Cooperative HEENT: Atraumatic, EOMI, PERRL, airway patent, moist oral mucosa Neck: Supple, trachea midline Respiratory: CTA bilaterally, normal effort, no wheezing/crackles CV: RRR, no murmur, cap refill <2 GI: Soft, nondistended, nontender, no masses MSK: No obvious deformities Skin: Warm, dry, intact Neuro: A&O x3, speech NL, sensory and motor grossly intact, no focal deficits Psych: Normal affect, normal mood, not suicidal or homicidal Current Patient Data: Labs: Laboratory Tests Test 04/02/20 13:13 White Blood Count 8.1 x10^3/uL (4.0-11.0) Red Blood Count 4.89 x10^6/uL (3.50-5.40) Hemoglobin 15.4 g/dL (12.0-15.5) Hematocrit 44.8 % (36.0-47.0) Mean Corpuscular Volume 92 fL (79-100) Mean Corpuscular Hemoglobin 32 pg (25-35) Mean Corpuscular Hemoglobin Concent 34 g/dL (31-37) Red Cell Distribution Width 13.2 % (11.5-14.5) Platelet Count 298 x10^3/uL (140-400) Neutrophils (%) (Auto) 53 % (31-73) Lymphocytes (%) (Auto) 38 % (24-48) Monocytes (%) (Auto) 7 % (0-9) Eosinophils (%) (Auto) 1 % (0-3) Basophils (%) (Auto) 1 % (0-3) Neutrophils # (Auto) 4.3 x10^3/uL (1.8-7.7) Lymphocytes # (Auto) 3.0 x10^3/uL (1.0-4.8) Monocytes # (Auto) 0.6 x10^3/uL (0.0-1.1) Eosinophils # (Auto) 0.1 x10^3/uL (0.0-0.7) Basophils # (Auto) 0.1 x10^3/uL (0.0-0.2) D-Dimer (Reny) < 0.27 ug/mlFEU Sodium Level 138 mmol/L (136-145) Potassium Level 3.2 mmol/L (3.5-5.1) L Chloride Level 100 mmol/L (98-107) Carbon Dioxide Level 23 mmol/L (21-32) Anion Gap 15 (6-14) H Blood Urea Nitrogen 5 mg/dL (7-20) L Creatinine 0.7 mg/dL (0.6-1.0) Estimated GFR (Cockcroft-Gault) 118.9 Glucose Level 93 mg/dL (70-99) Calcium Level 9.2 mg/dL (8.5-10.1) Troponin I Quantitative < 0.017 ng/mL (0.000-0.055) C-Reactive Protein, Quantitative 0.9 mg/L (0-3.3) XF-Swm-H-Type Natriuretic Peptide 6 pg/mL (0-124) Serum Test, Qualitative Negative (NEG) Laboratory Tests 04/02/20 13:13 Laboratory Tests 04/02/20 13:13 Vital Signs: Vital Signs Date Time Temp Pulse Resp B/P (MAP) Pulse Ox O2 Delivery O2 Flow Rate FiO2 04/02/20 12:31 98.4 109 16 158/96 (116) 100 Room Air 98.4 EKG: EKG: [] Heart Score: Risk Factors: Risk Factors: DM, Current or recent (<one month) smoker, HTN, HLP, family history of CAD, obesity. Risk Scores: Score 0 - 3: 2.5% MACE over next 6 weeks - Discharge Home Score 4 - 6: 20.3% MACE over next 6 weeks - Admit for Clinical Observation Score 7 - 10: 72.7% MACE over next 6 weeks - Early Invasive Strategies Radiology/Procedures: Radiology/Procedures: [] Course & Med Decision Making: Course & Med Decision Making Pertinent Labs and Imaging studies reviewed. (See chart for details) Patient is a 29-year-old female who presents to the emergency room complaining of shortness of breath. She does have a history of blood clots. D-dimer is negative. Shortness of breath work-up is normal. Patient is not hypoxic. She is not in any distress. Lungs are clear on auscultation. Patient's test results and vitals while in the ED were fully reviewed and discussed with the patient. Patient is stable and at this time does not need admission to the hospital. We have discussed strict return precautions and the importance of following up with their Primary Care Physician. Patient stated understanding and was given an opportunity to ask any questions. Patient is in agreement with plan. Dragon Disclaimer: Dragon Disclaimer: This electronic medical record was generated, in whole or in part, using a voice recognition dictation system. Departure Departure Impression: Primary Impression: Shortness of breath Disposition: 01 DC HOME SELF CARE/HOMELESS Condition: STABLE Referrals: UNKNOWN PCP NAME (PCP) Patient Instructions: Shortness of Breath Scripts Prednisone (PREDNISONE) 50 Mg Tablet 1 TAB PO DAILY, #5 TAB Prov: LENNY RUIZ MD 04/02/20 LENNY RUIZ MD Apr 02, 2020 14:49
[2020-04-02 15:05] LABS: PREG TEST PT QUAL NEGATIVE (NEG)
[2020-04-02 15:15] VITALS: BP 166/94
== END 2020-04-02 15:28 | disposition home or self-care (01) ==
LOC: ER 12:14
DX: R06.02 Shortness of breath (principal); I10 Essential (primary) hypertension; F17.200 Nicotine dependence, unspecified, uncomplicated; Z91.018 Allergy to other foods
CPT/HCPCS: 36415; 71045; 80048; 83880; 84484; 84703; 85025; 85379; 86140; 96361; 96374; 99284; J1100; J7030

== ENCOUNTER 2020-04-14 09:02 | Emergency (ER) | payer OTHER ==
[~2020-04-14] VITALS: Ht 170.2 cm; Wt 88.0 kg
[~2020-04-14 09:02] MED LIST changes: +PRED50TA PO
[2020-04-14 09:35] LABS: BILIRUBIN,URINE NEGATIVE (NEG); CLARITY,URINE CLEAR; COLOR,URINE YELLOW
[2020-04-14 09:36] VITALS: BP 172/107
[2020-04-14 09:36] LABS: BACTERIA,URINE 0 /HPF (0-FEW); NITRITE,URINE NEGATIVE (NEG); PROTEIN,URINE NEGATIVE (NEG-TRACE); UROBILINOGEN,URINE 0.2 mg/dL (0.2 mg/dL); WBC,URINE 0 /HPF (0-4)
[2020-04-14] MEDS ORDERED: AMLO2.5T2 PO (09:41)
[2020-04-14 09:48] LABS: U PREG PATIENT NEGATIVE (NEG)
--- NOTE | 2020-04-14 09:50 | PHYS DOC ---
Past Medical History Past Medical History: , Bronchitis, Hypertension Additional Past Medical Histor: P.E. Past Surgical History: No Surgical History Smoking Status: Current Every Day Smoker Alcohol Use: Occasionally Drug Use: None General Adult EDM: Chief Complaint: VAGINAL PROBLEM HPI: HPI: 29 yo (EAB in 2010-was last ) AA F PMH HTN, presents to the ED with complaints of white thickened, nonmalodorous, vaginal discharge for the past 2 days with no associated vaginal bleeding or abdominal/suprapubic/back pain. Patient does report new male, vaginal intercourse partner, intermittent protection. No prior history of sexually transmitted infections. Last menstrual period March 13. Is out of her Norvasc prescription, takes 2.5 mg daily -pmd Dr. Montez On no control. Declines STI testing. Review of Systems: Review of Systems: Constitutional: Denies fever or chills. [] Eyes: Denies change in visual acuity. [] HENT: Denies nasal congestion or sore throat. [] Respiratory: Denies cough or shortness of breath. [] Cardiovascular: Denies chest pain or edema. [] GI: Denies abdominal pain, nausea, vomiting, bloody stools or diarrhea. [] : Denies dysuria, hematuria, vaginal bleeding, urinary frequency or urgency Musculoskeletal: Denies back pain or joint pain or CVA tenderness Integument: Denies rash. [] Neurologic: Denies headache, focal weakness or sensory changes or nuchal rigidity Endocrine: Denies polyuria or polydipsia. [] Lymphatic: Denies swollen glands. [] Psychiatric: Denies depression or anxiety. [] Heart Score: Risk Factors: Risk Factors: DM, Current or recent (<one month) smoker, HTN, HLP, family history of CAD, obesity. Risk Scores: Score 0 - 3: 2.5% MACE over next 6 weeks - Discharge Home Score 4 - 6: 20.3% MACE over next 6 weeks - Admit for Clinical Observation Score 7 - 10: 72.7% MACE over next 6 weeks - Early Invasive Strategies Allergies: Allergies: Allergies Coded Allergies Type Severity Reaction Last Updated Verified pineapple Allergy Unknown 01/09/19 Yes Physical Exam: PE: Constitutional: Well developed, well nourished, no acute distress, non-toxic appearance. [] HENT: Normocephalic, atraumatic, Eyes: , EOMI, conjunctiva normal, no discharge. [] Neck: Normal range of motion, supple Cardiovascular: S1-S2 present Lungs & Thorax: Speaking in full sentences, bilateral equal chest rise Abdomen: Bowel sounds normal, soft, no tenderness, no masses, no pulsatile masses. [] Skin: Warm, dry, no erythema, no rash. [] Back: No tenderness, no CVA tenderness. [] Extremities: No tenderness, no cyanosis, no clubbing, ROM intact, no edema. [] Neurologic: Alert and oriented X 3, normal motor function, normal sensory function, no focal deficits noted. [] Psychologic: Affect normal, judgement normal, mood normal. [] Pelvic: Chaperoned by RN, clitoral nguyen and vaginal labial piercings, external g enitalia normal, some dried toilet paper easily removed, no vaginal bleeding, scant white increase clumpy vaginal discharge, cervical os closed, no cervical erythema, no CMT or adnexal tenderness, reports pruritus with speculum and manual exam, tolerated exam well Current Patient Data: Labs: Laboratory Tests Test 04/14/20 09:08 Urine Collection Type Unknown Urine Color Yellow Urine Clarity Clear Urine pH 6.0 (<5.0-8.0) Urine Specific [place] 1.020 (1.000-1.030) Urine Protein Negative mg/dL (NEG-TRACE) Urine Glucose (UA) Negative mg/dL (NEG) Urine Ketones (Stick) Negative mg/dL (NEG) Urine Blood Moderate (NEG) Urine Nitrite Negative (NEG) Urine Bilirubin Negative (NEG) Urine Urobilinogen Dipstick 0.2 mg/dL (0.2 mg/dL) Urine Leukocyte Esterase Negative (NEG) Urine RBC 6-10 /HPF (0-2) Urine WBC 0 /HPF (0-4) Urine Squamous Epithelial Cells Mod /LPF Urine Bacteria 0 /HPF (0-FEW) Urine Mucus Slight /LPF Vital Signs: Vital Signs Date Time Temp Pulse Resp B/P (MAP) Pulse Ox O2 Delivery O2 Flow Rate FiO2 04/14/20 09:36 98.2 93 18 172/107 (128) 98 Room Air 98.2 EKG: EKG: [] Radiology/Procedures: Radiology/Procedures: [] Course & Med Decision Making: Course & Med Decision Making Pertinent Labs and Imaging studies reviewed. (See chart for details) Patient presented to the ED with complaints of abnormal vaginal discharge, wet prep pending and urinalysis. Patient also presents with asymptomatic, uncontro lled hypertension -knew I would prescribe 30-day supply prescription and advised urgent PMD follow-up for blood pressure check. 5 minutes after I examined patient she was seen eloping from the emergency department (had no IV)-patient with medical decision making capacity but was not cleared from life-threatening processes or cleared medically by myself. Pt told RN she needed to go out and check on her 17 year old son who had the keys to her car and was outside. Patient was educated that if she would come back she would need to check in again and we cannot give out medical information over the phone / hipaa laws. Pt did not receive any follow-up paperwork. [place]yamon Disclaimer: Tracee Disclaimer: This electronic medical record was generated, in whole or in part, using a voice recognition dictation system. Departure Departure Impression: Primary Impression: Vaginal discharge Additional Impression: Uncontrolled hypertension Disposition: 07 AMA/ELOPED/LWBS Condition: STABLE Referrals: UNKNOWN PCP NAME (PCP) FOLLOW UP WITH FAMILY MEDICINE: Family Medicine Address: [address] [place] [id number] Patient Instructions: Hypertension Additional Instructions: EMERGENCY DEPARTMENT GENERAL DISCHARGE INSTRUCTIONS Thank you for coming to [facility] Emergency Department (ED) today and trusting us with you care. We trust that you had a positive experience in our Emergency Department. If you wish to speak to the department management, you may call the Director at [phone]. YOUR FOLLOW UP INSTRUCTIONS ARE FOLLOWS: 1. Do you have a private Doctor? If you do not have a private doctor, please ask for a resource list of physicians or clinics that may be able to assist you with follow up care. 2. The Emergency Physicain has interpreted your x-rays. The X-Ray specialist will also review them. If there is a change in the findings, you will be notified in 48 hours when at all possible. 3. A lab test or culture has been done, your results will be reviewed and you will be notified if you need a change in treatment. ADDITIONAL INSTRUCTIONS AND INFORMATION: 1. Your care today has been supervised by a physician who is specially trained in emergency care. Many problems require more than one evaluation for a complete diagnosis and treatment. We recommend that you schedule your follow up appointment as recommended to ensure complete treatment of you illness or injury. If you are unable to obtain follow up care and continue to have a problem, or if your condition worsens, we recommend that you return to the ED. 2. We are not able to safely determine your condition over the phone nor are we able to give sound medical advice over the phone. For these safety reasons, if you call for medical advice we will ask you to come to the ED for further evaluation. 3. If you have any questions regarding these discharge instructions please call the ED at [phone]. SAFETY INFORMATION: In the interest of safety, wellness, and injury prevention; we encourage you to wear your sealbelt, if you smoke; quite smoking, and we encourage family to use a protective helmet for bicycling and other sporting events that present an increased risk for head injury. IF YOUR SYMPTOMS WORSEN OR NEW SYMPTOMS DEVELOP, OR YOU HAVE CONCERNS ABOUT YOUR CONDITION; OR IF YOUR CONDITION WORSENS WHILE YOU ARE WAITING FOR YOUR FOLLOW UP APPOINTMENT; EITHER CONTACT YOUR PRIMARY CARE DOCTOR, THE PHYSICIAN WHOSE NAME AND NUMBER YOU WERE GIVEN, OR RETURN TO THE ED IMMEDIATELY. Scripts Amlodipine Besylate (NORVASC) 2.5 Mg Tablet 1 TAB PO DAILY, #30 TAB 0 Refills Prov: CAROLINE PEREZ DO 04/14/20 CAROLINE PEREZ DO Apr 14, 2020 09:50
== END 2020-04-14 10:13 | disposition left against medical advice (07) ==
LOC: ER 09:02
DX: N89.8 Other specified noninflammatory disorders of vagina (principal); I10 Essential (primary) hypertension; F17.200 Nicotine dependence, unspecified, uncomplicated; Z91.018 Allergy to other foods
CPT/HCPCS: 81001; 81025; 99284; Q0111

== ENCOUNTER 2020-11-06 18:11 | Emergency (ER) | payer OTHER ==
[~2020-11-06] VITALS: Ht 170.2 cm; Wt 84.9 kg
[~2020-11-06 18:11] MED LIST changes: +AMLO2.5T2 PO
[2020-11-06 18:37] VITALS: BP 136/88
[2020-11-06 19:26] LABS: BILIRUBIN,URINE NEGATIVE (NEG); CLARITY,URINE CLEAR; COLOR,URINE YELLOW; NITRITE,URINE POSITIVE (NEG); PH,URINE 5.5 (<5.0-8.0); PROTEIN,URINE NEGATIVE (NEG-TRACE); UROBILINOGEN,URINE 0.2 mg/dL (0.2 mg/dL)
[2020-11-06 19:34] LABS: BACTERIA,URINE MODERATE /HPF (0-FEW)
[2020-11-06] MEDS ORDERED: CEPH500C PO (19:43)
--- NOTE | 2020-11-06 19:43 | PHYS DOC ---
Past Medical History Past Medical History: , Bronchitis, Hypertension Additional Past Medical Histor: P.E. Past Surgical History: No Surgical History Smoking Status: Current Every Day Smoker Alcohol Use: Occasionally Drug Use: None General Adult EDM: Chief Complaint: URINARY FREQUENCY HPI: HPI: Patient is a 30 year old female who presents with burning with urination, lower abdominal pressure and white discharge causing itching for the last week. She states she would like to be tested for STDs. She states she will wait the 48 hours to see if she comes back positive. She does not want to be treated today for STDs. Patient has a history of hypertension, , bronchitis and PE. Patient denies chest pain, fever, back pain, nausea, vomiting, abdominal pain, headache, dizziness. Denies any pain. Review of Systems: Review of Systems: Constitutional: Denies fever or chills. [] Eyes: Denies change in visual acuity. [] HENT: Denies nasal congestion or sore throat. [] Respiratory: Denies cough or shortness of breath. [] Cardiovascular: Denies chest pain or edema. [] GI: +Low mid abdominal pressure but denies pain, nausea, vomiting, bloody stools or diarrhea. [] : + dysuria. + Vaginal discharge [] Musculoskeletal: Denies back pain or joint pain. [] Integument: Denies rash. [] Neurologic: Denies headache, focal weakness or sensory changes. [] Endocrine: Denies polyuria or polydipsia. [] Lymphatic: Denies swollen glands. [] Psychiatric: Denies depression or anxiety. [] Heart Score: C/O Chest Pain: No Risk Factors: Risk Factors: DM, Current or recent (<one month) smoker, HTN, HLP, family history of CAD, obesity. Risk Scores: Score 0 - 3: 2.5% MACE over next 6 weeks - Discharge Home Score 4 - 6: 20.3% MACE over next 6 weeks - Admit for Clinical Observation Score 7 - 10: 72.7% MACE over next 6 weeks - Early Invasive Strategies Allergies: Allergies: Allergies Coded Allergies Type Severity Reaction Last Updated Verified pineapple Allergy Unknown 01/09/19 Yes Physical Exam: PE: Constitutional: Well developed, well nourished, no acute distress, non-toxic appearance. [] HENT: Normocephalic, atraumatic, bilateral external ears normal, oropharynx moist, no oral exudates, nose normal. [] Eyes: PERRLA, EOMI, conjunctiva normal, no discharge. [] Neck: Normal range of motion, no tenderness, supple, no stridor. [] Cardiovascular:Heart rate regular rhythm, no murmur [] Lungs & Thorax: Bilateral breath sounds clear to auscultation [] Abdomen: Bowel sounds normal, soft, no tenderness, no masses, no pulsatile masses. [] Skin: Warm, dry, no erythema, no rash. [] Back: No tenderness, no CVA tenderness. [] Extremities: No tenderness, no cyanosis, no clubbing, ROM intact, no edema. [] Neurologic: Alert and oriented X 3, normal motor function, normal sensory function, no focal deficits noted. [] Psychologic: Affect normal, judgement normal, mood normal. [] Normal physical exam Current Patient Data: Labs: Laboratory Tests Test 11/06/20 18:25 11/06/20 18:29 Urine Collection Type Unknown Urine Color Yellow Urine Clarity Clear Urine pH 5.5 (<5.0-8.0) Urine Specific [place] 1.020 (1.000-1.030) Urine Protein Negative mg/dL (NEG-TRACE) Urine Glucose (UA) Negative mg/dL (NEG) Urine Ketones (Stick) Negative mg/dL (NEG) Urine Blood Large (NEG) Urine Nitrite Positive (NEG) Urine Bilirubin Negative (NEG) Urine Urobilinogen Dipstick 0.2 mg/dL (0.2 mg/dL) Urine Leukocyte Esterase Moderate (NEG) Urine RBC 1-2 /HPF (0-2) Urine WBC 11-20 /HPF (0-4) Urine Squamous Epithelial Cells Mod /LPF Urine Bacteria Moderate /HPF (0-FEW) Urine Mucus Marked /LPF POC Urine HCG, Qualitative Hcg negative (Negative) Vital Signs: Vital Signs Date Time Temp Pulse Resp B/P (MAP) Pulse Ox O2 Delivery O2 Flow Rate FiO2 11/06/20 18:37 98.4 81 18 136/88 (104) 99 Room Air 98.4 EKG: EKG: [] Radiology/Procedures: Radiology/Procedures: [] Course & Med Decision Making: Course & Med Decision Making Pertinent Labs and Imaging studies reviewed. (See chart for details) See HPI. Alert and oriented x4. Ambulatory with a steady gait. Skin pink warm dry. No CVA tenderness. Abdomen is soft and nontender. Afebrile. Urinalysis shows nitrites. Pelvic Exam: Coil Maker present Abdomen: Nontender External Genitalia: Normal Skin Speculum: Normal vaginal mucosa, white cervical discharge Bimanual: No adnexal masses or tenderness, No CMT [] Dragon Disclaimer: Dragon Disclaimer: This electronic medical record was generated, in whole or in part, using a voice recognition dictation system. Departure Departure Impression: Primary Impression: UTI (urinary tract infection) Qualified Codes: N39.0 - Urinary tract infection, site not specified Additional Impression: Concern about STD in female without diagnosis Disposition: HOME / SELF CARE / HOMELESS Condition: STABLE Referrals: NO PCP (PCP) Patient Instructions: Sexually Transmitted Disease, Urinary Tract Infection Additional Instructions: Follow-up with a sole tacker if needed. Take medication as prescribed and with food. Drink plenty of fluids. Scripts Cephalexin (CEPHALEXIN) 500 Mg Capsule 1 CAP PO TID, #21 CAP Prov: BERNARD CHADWICK APRN 11/06/20 BERNARD CHADWICK APRN November 06, 2020 19:43
[2020-11-08 17:10] LABS: GC PROBE Negative (Negative)
== END 2020-11-06 20:45 | disposition home or self-care (01) ==
LOC: ER 18:11
DX: N39.0 Urinary tract infection, site not specified (principal); Z20.2 Contact with and (suspected) exposure to infections with a predominantly sexual mode of transmission; I10 Essential (primary) hypertension; F17.200 Nicotine dependence, unspecified, uncomplicated; Z91.018 Allergy to other foods
CPT/HCPCS: 81001; 81025; 87086; 87491; 87591; 99284; Q0111

== ENCOUNTER 2021-01-02 08:11 | Emergency (ER) | payer OTHER ==
[~2021-01-02] VITALS: Ht 170.2 cm; Wt 81.8 kg
[~2021-01-02 08:11] MED LIST changes: +CEPH500C PO
[2021-01-02 08:25] VITALS: BP 130/87
--- NOTE | 2021-01-02 10:00 | PHYS DOC ---
Past Medical History Past Medical History: , Bronchitis, Hypertension Additional Past Medical Histor: P.E. Past Surgical History: No Surgical History Smoking Status: Current Every Day Smoker Alcohol Use: Occasionally Drug Use: None General Adult EDM: Chief Complaint: SORE THROAT HPI: HPI: Patient is a 30 year old female who presents with sore throat, congestion, and occasional chills. Has been worsening over the past several days. Nobody at home has similar symptoms. Patient is not vaccinated for Covid. She has no shortness of breath, fevers. Has been checking her temperature several times daily. Has not seen her regular doctor. Has not taken any analgesics for the sore throat. No pain with moving her neck. Is tolerating secretions fine. Is eating and drinking well. [] Review of Systems: Review of Systems: Constitutional: Denies fever. +chills. [] Eyes: Denies change in visual acuity. [] HENT: + Sore throat, congestion, ear fullness. Denies nasal congestion or sore throat. [] Respiratory: Denies cough or shortness of breath. [] Cardiovascular: Denies chest pain or edema. [] GI: Denies abdominal pain, nausea, vomiting, bloody stools or diarrhea. [] : Denies dysuria. [] Musculoskeletal: Denies back pain or joint pain. [] Integument: Denies rash. [] Neurologic: Denies headache, focal weakness or sensory changes. [] Endocrine: Denies polyuria or polydipsia. [] Lymphatic: Denies swollen glands. [] Psychiatric: Denies depression or anxiety. [] Heart Score: C/O Chest Pain: N/A Risk Factors: Risk Factors: DM, Current or recent (<one month) smoker, HTN, HLP, family history of CAD, obesity. Risk Scores: Score 0 - 3: 2.5% MACE over next 6 weeks - Discharge Home Score 4 - 6: 20.3% MACE over next 6 weeks - Admit for Clinical Observation Score 7 - 10: 72.7% MACE over next 6 weeks - Early Invasive Strategies Family History: Family History: No pertinent family history Allergies: Allergies: Allergies Coded Allergies Type Severity Reaction Last Updated Verified pineapple Allergy Unknown 01/09/19 Yes Physical Exam: PE: Constitutional: Well developed, well nourished, no acute distress, non-toxic appearance. [] HENT: Normocephalic, atraumatic, bilateral external ears normal, oropharynx moist, no oral exudates, nose normal. [] Eyes: PERRLA, EOMI, conjunctiva normal, no discharge. [] Neck: Normal range of motion. Moves neck easily without any evidence of discomfort. Managing secretions., no tenderness, supple, no stridor. [] Cardiovascular:Heart rate regular rhythm, no murmur [] Lungs & Thorax: Bilateral breath sounds clear to auscultation [] Abdomen: Bowel sounds normal, soft, no tenderness, no masses, no pulsatile masses. [] Skin: Warm, dry, no erythema, no rash. [] Back: No tenderness, no CVA tenderness. [] Extremities: No tenderness, no cyanosis, no clubbing, ROM intact, no edema. [] Neurologic: Alert and oriented X 3, normal motor function, normal sensory function, no focal deficits noted. [] Psychologic: Affect normal, judgement normal, mood normal. [] Current Patient Data: Vital Signs: Vital Signs Date Time Temp Pulse Resp B/P (MAP) Pulse Ox O2 Delivery O2 Flow Rate FiO2 01/02/21 08:25 98.7 71 20 130/87 (104) 99 Room Air 98.7 EKG: EKG: [] Radiology/Procedures: Radiology/Procedures: [] Course & Med Decision Making: Course & Med Decision Making Pertinent Labs and Imaging studies reviewed. (See chart for details) Patient is a 30-year-old female without pertinent past medical history who presents with several days of sore throat, sinus congestion, chills, but without fever. Well-appearing on examination. No evidence of GROUND SUPPORT EQUIPMENT MECHANIC, RPA, or Amber's angina. Do not feel that she requires a CT of her neck for deep space abscess. Patient requested a strep test, although there were no exudates. This ultimately returned negative. I urged the patient to consider getting a Covid test, but she refused on multiple requests. Her vital signs are normal as well as her exam except for some sinus congestion. This is most likely consistent with a viral URI. This was discussed with the patient. She was asked to follow-up with her PCP and consider Covid testing and vaccination. Tracee Disclaimer: Tracee Disclaimer: This electronic medical record was generated, in whole or in part, using a voice recognition dictation system. Departure Departure Disposition: HOME / SELF CARE / HOMELESS Condition: STABLE Referrals: NO PCP (PCP) Please follow-up with your PCP. If you do not have a PCP, please call the number for the [facility] at [phone]. JEFF ARGUETA MD Jan 02, 2021 10:00
== END 2021-01-02 10:36 | disposition home or self-care (01) ==
LOC: ER 08:11
DX: J02.9 Acute pharyngitis, unspecified (principal); R09.81 Nasal congestion; I10 Essential (primary) hypertension; F17.200 Nicotine dependence, unspecified, uncomplicated; Z91.018 Allergy to other foods
CPT/HCPCS: 87070; 87880; 99283

== ENCOUNTER 2021-05-01 08:47 | Emergency (ER) | payer OTHER ==
[~2021-05-01] VITALS: Ht 170.2 cm; Wt 95.3 kg
[~2021-05-01 08:47] MED LIST changes: -DOXY100C2 PO; +DOXY100C3 PO
[2021-05-01 08:48] VITALS: BP 125/84
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
[2021-05-01] MEDS ORDERED: IBUP-1007 PO (09:57)
[2021-05-01] MEDS ORDERED: CYCL10TA19 PO (09:57)
== END 2021-05-01 09:55 | disposition home or self-care (01) ==
LOC: ER 08:47
DX: M54.50 Low back pain, unspecified (principal); G89.11 Acute pain due to trauma; I10 Essential (primary) hypertension; Z87.891 Personal history of nicotine dependence; Z91.018 Allergy to other foods; V49.49XA Driver injured in collision with other motor vehicles in traffic accident, initial encounter; Y93.89 Activity, other specified; Y92.488 Other paved roadways as the place of occurrence of the external cause; Y99.8 Other external cause status
CPT/HCPCS: 99283

== ENCOUNTER 2021-08-07 18:00 | Emergency (ER) | payer OTHER ==
[~2021-08-07] VITALS: Ht 172.7 cm; Wt 90.9 kg
[~2021-08-07 18:00] MED LIST changes: +CYCL10TA19 PO
[2021-08-07 19:37] LABS: BILIRUBIN,URINE NEGATIVE (NEG); CLARITY,URINE CLEAR; COLOR,URINE YELLOW; NITRITE,URINE NEGATIVE (NEG); PROTEIN,URINE NEGATIVE (NEG-TRACE)
[2021-08-07 19:43] LABS: BACTERIA,URINE 0 /HPF (0-FEW)
--- NOTE | 2021-08-07 20:20 | PHYS DOC ---
Past Medical History Past Medical History: , Bronchitis, Hypertension Additional Past Medical Histor: Pulmonary Embolism Past Surgical History: No Surgical History Smoking Status: Former Smoker Alcohol Use: Occasionally Drug Use: None General Adult EDM: Chief Complaint: VAGINAL PROBLEM HPI: HPI: Patient is a 30 year old female who presents with dysuria, vaginal itching and increased discharge. Patient reports her dysuria symptoms started about 5 days ago with progression of other symptoms. In the past 6 months, patient has had 2 sexual partners. She reports intermittent condom use and is unsure if they have any other sexual partners. Patient denies abdominal pain, dyspareunia, vaginal bleeding, hematuria, fever, chills. Review of Systems: Review of Systems: ROS negative or noncontributory except as mentioned in HPI. Heart Score: C/O Chest Pain: No Allergies: Allergies: Allergies Coded Allergies Type Severity Reaction Last Updated Verified pineapple Allergy Intermediate itching 08/07/21 Yes Physical Exam: PE: Constitutional: Well developed, well nourished, no acute distress, non-toxic appearance. HENT: Normocephalic, atraumatic, bilateral external ears normal, no oral exudates, oropharynx moist, nose normal. Eyes: EOMI, conjunctiva normal, no discharge. Neck: Normal range of motion, no stridor. Abdomen: Bowel sounds normal, soft, no tenderness, no masses, no pulsatile masses. Genital: Mons pubis with symmetrical and appropriate hair growth pattern, no rash or other skin lesions appreciated to labia minora or majora, scant white discharge with fishy odor appreciated at vaginal introitus. No erythema or rash appreciated to the vaginal canal. Skin: Warm, dry, no erythema, no rash. Extremities: No tenderness, no cyanosis, no clubbing, ROM intact, no edema. Neurologic: Alert and oriented x4, no focal deficits noted. Current Patient Data: Labs: Laboratory Tests Test 08/07/21 18:40 Urine Collection Type Unknown Urine Color Yellow Urine Clarity Clear Urine pH 7.0 (<5.0-8.0) Urine Specific [place] 1.015 (1.000-1.030) Urine Protein Negative mg/dL (NEG-TRACE) Urine Glucose (UA) Negative mg/dL (NEG) Urine Ketones (Stick) Negative mg/dL (NEG) Urine Blood Negative (NEG) Urine Nitrite Negative (NEG) Urine Bilirubin Negative (NEG) Urine Urobilinogen Dipstick 1.0 mg/dL (0.2 mg/dL) Urine Leukocyte Esterase Moderate (NEG) Urine RBC 1-2 /HPF (0-2) Urine WBC 5-10 /HPF (0-4) Urine Squamous Epithelial Cells Mod /LPF Urine Bacteria 0 /HPF (0-FEW) Procedure Result WET PREP Final YEAST NONE SEEN TRICHOMONAS NONE SEEN CLUE CELLS CLUE CELLS PRESENT ALTERED PATRICIA ALTERED PATRICIA PRESENT SUGGESTIVE OF BACTERIAL VAGINOSIS WBCS OCCASIONAL SQUAMOUS EPS MANY Vital Signs: Vital Signs Date Time Temp Pulse Resp B/P (MAP) Pulse Ox O2 Delivery O2 Flow Rate FiO2 08/07/21 21:00 85 142/85 (104) 08/07/21 18:30 92 20 160/92 (114) 100 Room Air Course & Med Decision Making: Course & Med Decision Making Pertinent Labs and Imaging studies reviewed. (See chart for details) Patient is a 30-year-old female who presents with genitourinary complaints. Work-up today will include urinalysis, PCR urine for gonorrhea/chlamydia, wet prep. Patient has no active rash or other lesions. Patient will be treated for UTI, bacterial vaginosis and counseled on safe sex practices. Patient understands and is agreeable to discharge plan. Dragon Disclaimer: Dragon Disclaimer: This electronic medical record was generated, in whole or in part, using a voice recognition dictation system. Departure Departure Impression: Primary Impression: Bacterial vaginosis Additional Impressions: Concern about STD in female without diagnosis UTI (urinary tract infection) Qualified Codes: N30.00 - Acute cystitis without hematuria Disposition: HOME / SELF CARE / HOMELESS Condition: STABLE Referrals: NON,STAFF (PCP) Patient Instructions: Bacterial Vaginosis, [id number], Safe Sex, Urinary Trac t Infection, [id number] Additional Instructions: EMERGENCY DEPARTMENT GENERAL DISCHARGE INSTRUCTIONS Thank you for coming to [facility] Emergency Department (ED) today and trusting us with you care. We trust that you had a positive experience in our Emergency Department. If you wish to speak to the department management, you may call the director at . YOUR FOLLOW UP INSTRUCTIONS ARE FOLLOWS: 1. Follow up with your primary care doctor. If you do not have a primary doctor, please ask for a resource list of physicians or clinics that may be able to assist you with follow up care. 2. The emergency provider has interpreted your imaging studies, if any were ordered. The radiology digital imaging technician also reviewed them. If there is a change in the findings, you will be notified in 48 hours when at all possible. 3. If a lab test or culture has been done, your results will be reviewed and you will be notified if you need a change in treatment. 4. Follow instructions verbalized to you and refer to the printouts if needed. 5. Do not drink alcohol while taking metronidazole. ADDITIONAL INSTRUCTIONS AND INFORMATION: 1. Your care today has been supervised by a physician who is specially trained in emergency care. Many problems require more than one evaluation for a complete diagnosis and treatment. We recommend that you schedule your follow up appointment as recommended to ensure complete treatment of you illness or injury. If you are unable to obtain follow up care and continue to have a problem, or if your condition worsens, we recommend that you return to the ED. 2. We are not able to safely determine your condition over the phone nor are we able to give sound medical advice over the phone. For these safety reasons, if you call for medical advice we will ask you to come to the ED for further evaluation. 3. If you have any questions regarding these discharge instructions please call the ED at . SAFETY INFORMATION: In the interest of safety, wellness, and injury prevention; we encourage you to wear your seat belt, if you smoke; quite smoking, and we encourage family to use a protective helmet for bicycling and other sporting events that present an increased risk for head injury. IF YOUR SYMPTOMS WORSEN OR NEW SYMPTOMS DEVELOP, OR YOU HAVE CONCERNS ABOUT YOUR CONDITION; OR IF YOUR CONDITION WORSENS WHILE YOU ARE WAITING FOR YOUR FOLLOW UP APPOINTMENT; EITHER CONTACT YOUR PRIMARY CARE DOCTOR, THE PHYSICIAN WHOSE NAME AND NUMBER YOU WERE GIVEN, OR RETURN TO THE ED IMMEDIATELY. Scripts Ondansetron (ONDANSETRON ODT) 4 Mg Tab.rapdis 1 TAB PO PRN Q6-8HRS, #10 TAB Prov: KAYKAY MCCOY 08/07/21 Nitrofurantoin Monohyd/M-Cryst (MACROBID 100 MG CAPSULE) 100 Mg Capsule 1 CAP PO BID for 7 Days, #14 CAP 0 Refills Prov: KAYKAY MCCOY 08/07/21 Tinidazole (TINIDAZOLE) 500 Mg Tablet 4 TAB PO DAILY for 2 Days, #8 TAB Prov: KAYKAY MCCOY 08/07/21 KAYKAY MCCOY Aug 07, 2021 20:20
[2021-08-07] MEDS ORDERED: ONDA4TAB12 PO (20:37)
[2021-08-07] MEDS ORDERED: NITR100C62 PO (20:37)
[2021-08-07] MEDS ORDERED: [UNRECOGNIZED DRUG - CODE] PO (20:37)
[2021-08-07 21:00] VITALS: BP 142/85
== END 2021-08-07 21:02 | disposition home or self-care (01) ==
LOC: ER 18:00
DX: N30.00 Acute cystitis without hematuria (principal); N76.0 Acute vaginitis; B96.89 Other specified bacterial agents as the cause of diseases classified elsewhere; Z20.2 Contact with and (suspected) exposure to infections with a predominantly sexual mode of transmission; I10 Essential (primary) hypertension; Z87.891 Personal history of nicotine dependence; Z91.018 Allergy to other foods
CPT/HCPCS: 81001; 87086; 87147; 87491; 87591; 99284; Q0111